=== PATIENT | female | born 1970 | race Caucasian/White ===

== ENCOUNTER 2016-11-15 06:35 | Emergency (ER) | payer MEDICARE ==
[~2016-11-15 06:35] MED LIST: ESCI10TA2 PO; FERR325T PO; HYDR25T PO; MULT1TAB8 PO; NEXI1CAP4 PO; NICO2GUM62 PO; PANT40TA2 PO; SUCR1SS PO
[2016-11-15] MEDS ORDERED: ONDANSETRON 4MG/2ML VIAL (J2405) As Ordered ONE (07:47)
[2016-11-15 08:21] LABS: BASO % 0.5 % (0.0-1.0); EOS # 0.4 K/mm3 (0.0-0.50); EOS % 7.2 % (0.0-3.0); LARGE UNSTAINED CELL # 0.2 K/mm3 (0.0-0.4); LARGE UNSTAINED CELL % 3.6 % (0.0-4.0); LYMPH # 1.5 K/mm3 (1.5-4.5); LYMPH % 26.5 % (24.0-44.0); MEAN CORPUSCULAR HEMOGLOBIN 28.1 pg (27.0-33.0); MEAN CORPUSCULAR HGB CONC 31.7 g/dl (32.0-36.5); MEAN CORPUSCULAR VOLUME 88.6 fl (80.0-96.0); MONO # 0.4 K/mm3 (0.0-0.8); MONO % 7.5 % (0.0-5.0); NEUTROPHILS # 2.7 K/mm3 (1.8-7.7); NEUTROPHILS % 54.7 % (36.0-66.0); PLATELET COUNT, AUTOMATED 230 k/mm3 (150-450); RED CELL DISTRIBUTION WIDTH 13.8 % (11.5-14.5); WHITE BLOOD COUNT 4.9 K/mm3 (4.0-10.0)
[2016-11-15 08:24] LABS: ALBUMIN/GLOBULIN RATIO 0.91 (1.00-1.93); ALKALINE PHOSPHATASE 75 U/L (45-117); ALT/SGPT 16 U/L (12-78); ANION GAP 9 MEQ/L (8-16); AST/SGOT 21 U/L (15-37); BILIRUBIN,DIRECT 0.1 MG/DL (0.0-0.2); BILIRUBIN,TOTAL 0.3 MG/DL (0.2-1.0); BLOOD UREA NITROGEN 17 MG/DL (7-18); CARBON DIOXIDE LEVEL 24 MEQ/L (21-32); CHLORIDE LEVEL 109 MEQ/L (98-107); CREATININE FOR GFR 0.92 MG/DL (0.55-1.02); GLOMERULAR FILTRATION RATE > 60.0 (>58); GLUCOSE, FASTING 78 MG/DL (70-105); POTASSIUM SERUM 4.1 MEQ/L (3.5-5.1); SODIUM LEVEL 142 MEQ/L (136-145); TOTAL PROTEIN 6.3 GM/DL (6.4-8.2)
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
--- NOTE | 2016-11-15 09:46 | EDDOCDS ---
Physician Documentation [facility] Name: Nohemi Barrios Age: 46 yrs Sex: Female : 1970 Arrival Date: 11/15/2016 Time: 06:35 Bed 9 Private MD: Maryana Jacinto Disposition: 11/15 08:42 Critical Care: Critical care not applicable. pc Disposition: 11/15/16 08:43 Discharged to Home/Self Care. Impression: Nausea. - Condition is Stable. - Discharge Instructions: Nausea, Adult. - Prescriptions for ZOFRAN ODT 4 mg - dissolve 1 tablet by ORAL route 4 times per day As needed do not chew, do not swallow whole; 10 tablet. - Medication Reconciliation, Local Pharmacy Hours form. - Follow up: Maryana Jacinto; When: Call to arrange an appointment; Reason: Continuance of care. - Problem is new. - Symptoms have improved. HPI: 08:28 This 46 yrs old Female presents to ER via Ambulance with complaints of pc Nausea, itching x 3 weeks. 08:28 The history is obtained from the patient. She woke up with nausea this morning but has pc not vomited and has no bowel complaints, denies or Resp symptoms, denies fevers or chills. She has felt "itchy all over" for 3 weeks without any rashes. At their worst, the symptoms were mild. In the emergency department, the symptoms are mild. The patient has not experienced similar symptoms in the past. The patient has not recently seen a physician. Historical: - Allergies: PENICILLINS; - Home Meds: 1. Carafate 1 gram Oral tab 1 tab 4 times per day (Last dose: 11/14/2016) 2. Nexium 40 mg Oral cpDR 1 cap once daily (Last dose: 11/14/2016) 3. Wellbutrin Oral Unknown daily ran out before - PMHx: GERD; Depression; - PSHx: Gastric Bypass (February 2013); Cholecystectomy; - The history from nurses notes was reviewed: and I agree with what is documented. - Social history: Smoking status: Electronic cigarettes No barriers to communication noted, The patient speaks fluent Maltese, Speaks appropriately for age. - : The pt / caregiver states he / she is not on anticoagulants. Home medication list is obtained from the patient. - Hospitalizations: : No recent hospitalization is reported. - Exposure Risk Screening:: None identified. - Immunization history:: All immunizations up-to-date. - Family history: Not pertinent. - Social history:: the patient is a non-smoker, the patient does not drink alcohol. 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 pc Exam: 08:28 General Appearance: no acute distress, alert. pc 08:28 EENT: normal eye inspection, ears, nose and throat normal, pharynx normal, mucous membranes moist 08:28 Neck: The exam reveals no acute abnormalities. ROM is normal and painless. No nuchal rigidity is noted.. 08:28 Respiratory: no respiratory distress, normal breath sounds. 08:28 CVS: regular pulse rate, regular rhythm, normal S1 and S2, no murmurs, strong peripheral pulses. 08:28 Abdomen: soft, non-tender, no organomegaly, normal bowel sounds. 08:40 Back: normal inspection. pc 08:40 Skin: skin color is normal, warm, dry. 08:40 Extremities: The extremities have a grossly normal appearance, are non-tender, without acute ROM abnormalities. 08:40 Neuro: oriented x 3, cranial nerves normal as tested, no motor deficits, no sensory deficits. 08:40 Psych: normal mood. Vital Signs: 06:43 BP 115 / 61; Pulse 77; Resp 18; Temp 98.2(TE); Pulse Ox 98% on R/A; Weight 84.37 kg / dolly 186 lbs (R); Height 5 ft. 10 in. (177.80 cm) (R); Pain 0/10; 09:13 BP 128 / 89; Pulse 74; Resp 18; Temp 98.2(O); Pulse Ox 98% on R/A; Pain 0/10; ml6 06:43 Body Mass Index 26.69 (84.37 kg, 177.80 cm) dolly MDM: 07:13 [place] [place] Payment Agreement was scanned into [employer] and attached to record. hs2 07:46 IV Saline Lock ordered. pc 07:46 Ondansetron 4 mg IVP once ordered. pc 07:47 CBC with Diff Ordered. EDMS 07:47 MED Profile Ordered. EDMS 07:47 Liver Profile Ordered. EDMS 07:47 Lipase Ordered. EDMS 07:48 Financial registration complete. hs2 08:28 CBC with Diff Reviewed. pc 08:28 MED Profile Reviewed. pc 08:28 Liver Profile Reviewed. pc 08:28 Lipase Reviewed. pc 08:40 Differential Diagnosis: nausea with benign exam. Plan: meds, labs. pc 08:42 Data reviewed: old medical records, vital signs, nurses notes, lab test results. Test pc interpretation: LAB - all labs as ordered have been reviewed, interpreted and considered in the overall management of the clinical presentation;. The patient has been re-examined and re-evaluated. The patient's symptoms have mildly improved after treatment. Disposition: The historical points, examination findings, and any diagnostic results supporting the provided diagnosis, were discussed with the patient or legal guardian. The need for outpatient follow up with the provider listed on their discharge instructions was discussed. They were encouraged to return to [facility], or the nearest ED, if symptoms worsen/persist, or for any other questions/concerns. 08:58 Consult: Water Commissioner ordered. ml6 Administered Medications: 07:57 Drug: Ondansetron 4 mg [ondansetron HCl 2 mg/mL intravenous solution (2 mL)] Route: ml6 IVP; Site: right antecubital; 09:24 Follow up: Response: Nausea is resolved ml6 Signatures: Dispatcher [employer] EDHI Camilo Price MD MD pc Lowe, Matthew, MILLICENT RICKS ml6 Sophy Desir RN RN ko2 Silvia Starr, Reg Reg hs2 The chart was reviewed and I authenticate all verbal orders and agree with the evaluation and treatment provided.Attachments: 07:13 [facility] Payment Agreement hs2 MTDD
--- NOTE | 2016-11-17 10:46 | EDDOCDS ---
Physician Documentation [facility] Name: Nohemi Barrios Age: 46 yrs Sex: Female : 1970 Arrival Date: 11/15/2016 Time: 06:35 Bed 9 Private MD: Maryana Jacinto Disposition: 11/15 08:42 Critical Care: Critical care not applicable. pc Disposition: 11/15/16 08:43 Discharged to Home/Self Care. Impression: Nausea. - Condition is Stable. - Discharge Instructions: Nausea, Adult. - Prescriptions for ZOFRAN ODT 4 mg - dissolve 1 tablet by ORAL route 4 times per day As needed do not chew, do not swallow whole; 10 tablet. - Medication Reconciliation, Local Pharmacy Hours form. - Follow up: Maryana Jacinto; When: Call to arrange an appointment; Reason: Continuance of care. - Problem is new. - Symptoms have improved. HPI: 08:28 This 46 yrs old Female presents to ER via Ambulance with complaints of pc Nausea, itching x 3 weeks. 08:28 The history is obtained from the patient. She woke up with nausea this morning but has pc not vomited and has no bowel complaints, denies or Resp symptoms, denies fevers or chills. She has felt "itchy all over" for 3 weeks without any rashes. At their worst, the symptoms were mild. In the emergency department, the symptoms are mild. The patient has not experienced similar symptoms in the past. The patient has not recently seen a physician. Historical: - Allergies: PENICILLINS; - Home Meds: 1. Carafate 1 gram Oral tab 1 tab 4 times per day (Last dose: 11/14/2016) 2. Nexium 40 mg Oral cpDR 1 cap once daily (Last dose: 11/14/2016) 3. Wellbutrin Oral Unknown daily ran out before - PMHx: GERD; Depression; - PSHx: Gastric Bypass (February 2013); Cholecystectomy; - The history from nurses notes was reviewed: and I agree with what is documented. - Social history: Smoking status: Electronic cigarettes No barriers to communication noted, The patient speaks fluent Hebrew, Speaks appropriately for age. - : The pt / caregiver states he / she is not on anticoagulants. Home medication list is obtained from the patient. - Hospitalizations: : No recent hospitalization is reported. - Exposure Risk Screening:: None identified. - Immunization history:: All immunizations up-to-date. - Family history: Not pertinent. - Social history:: the patient is a non-smoker, the patient does not drink alcohol. 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 pc Exam: 08:28 General Appearance: no acute distress, alert. pc 08:28 EENT: normal eye inspection, ears, nose and throat normal, pharynx normal, mucous membranes moist 08:28 Neck: The exam reveals no acute abnormalities. ROM is normal and painless. No nuchal rigidity is noted.. 08:28 Respiratory: no respiratory distress, normal breath sounds. 08:28 CVS: regular pulse rate, regular rhythm, normal S1 and S2, no murmurs, strong peripheral pulses. 08:28 Abdomen: soft, non-tender, no organomegaly, normal bowel sounds. 08:40 Back: normal inspection. pc 08:40 Skin: skin color is normal, warm, dry. 08:40 Extremities: The extremities have a grossly normal appearance, are non-tender, without acute ROM abnormalities. 08:40 Neuro: oriented x 3, cranial nerves normal as tested, no motor deficits, no sensory deficits. 08:40 Psych: normal mood. Vital Signs: 06:43 BP 115 / 61; Pulse 77; Resp 18; Temp 98.2(TE); Pulse Ox 98% on R/A; Weight 84.37 kg / dolly 186 lbs (R); Height 5 ft. 10 in. (177.80 cm) (R); Pain 0/10; 09:13 BP 128 / 89; Pulse 74; Resp 18; Temp 98.2(O); Pulse Ox 98% on R/A; Pain 0/10; ml6 06:43 Body Mass Index 26.69 (84.37 kg, 177.80 cm) dolly MDM: 07:13 [place] [place] Payment Agreement was scanned into [employer] and attached to record. hs2 07:46 IV Saline Lock ordered. pc 07:46 Ondansetron 4 mg IVP once ordered. pc 07:47 CBC with Diff Ordered. EDMS 07:47 MED Profile Ordered. EDMS 07:47 Liver Profile Ordered. EDMS 07:47 Lipase Ordered. EDMS 07:48 Financial registration complete. hs2 08:28 CBC with Diff Reviewed. pc 08:28 MED Profile Reviewed. pc 08:28 Liver Profile Reviewed. pc 08:28 Lipase Reviewed. pc 08:40 Differential Diagnosis: nausea with benign exam. Plan: meds, labs. pc 08:42 Data reviewed: old medical records, vital signs, nurses notes, lab test results. Test pc interpretation: LAB - all labs as ordered have been reviewed, interpreted and considered in the overall management of the clinical presentation;. The patient has been re-examined and re-evaluated. The patient's symptoms have mildly improved after treatment. Disposition: The historical points, examination findings, and any diagnostic results supporting the provided diagnosis, were discussed with the patient or legal guardian. The need for outpatient follow up with the provider listed on their discharge instructions was discussed. They were encouraged to return to [facility], or the nearest ED, if symptoms worsen/persist, or for any other questions/concerns. 08:58 Consult: Farm Reporter ordered. ml6 Administered Medications: 07:57 Drug: Ondansetron 4 mg [ondansetron HCl 2 mg/mL intravenous solution (2 mL)] Route: ml6 IVP; Site: right antecubital; 09:24 Follow up: Response: Nausea is resolved ml6 Signatures: Dispatcher [employer] EDWV Camilo Price MD MD pc Lowe, Matthew, RN RN ml6 Sophy Desir RN RN ko2 Silvia Starr, Reg Reg hs2 The chart was reviewed and I authenticate all verbal orders and agree with the evaluation and treatment provided.Attachments: 07:13 [facility] Payment Agreement hs2 Chart Complete MTDD
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
--- NOTE | 2016-11-17 10:46 | EDDOCDS ---
Physician Documentation [facility] Name: Nohemi Barrios Age: 46 yrs Sex: Female : 1970 Arrival Date: 11/15/2016 Time: 06:35 Bed 9 Private MD: Maryana Jacinto Disposition: 11/15 08:42 Critical Care: Critical care not applicable. pc Disposition: 11/15/16 08:43 Discharged to Home/Self Care. Impression: Nausea. - Condition is Stable. - Discharge Instructions: Nausea, Adult. - Prescriptions for ZOFRAN ODT 4 mg - dissolve 1 tablet by ORAL route 4 times per day As needed do not chew, do not swallow whole; 10 tablet. - Medication Reconciliation, Local Pharmacy Hours form. - Follow up: Maryana Jacinto; When: Call to arrange an appointment; Reason: Continuance of care. - Problem is new. - Symptoms have improved. HPI: 08:28 This 46 yrs old Female presents to ER via Ambulance with complaints of pc Nausea, itching x 3 weeks. 08:28 The history is obtained from the patient. She woke up with nausea this morning but has pc not vomited and has no bowel complaints, denies or Resp symptoms, denies fevers or chills. She has felt "itchy all over" for 3 weeks without any rashes. At their worst, the symptoms were mild. In the emergency department, the symptoms are mild. The patient has not experienced similar symptoms in the past. The patient has not recently seen a physician. Historical: - Allergies: PENICILLINS; - Home Meds: 1. Carafate 1 gram Oral tab 1 tab 4 times per day (Last dose: 11/14/2016) 2. Nexium 40 mg Oral cpDR 1 cap once daily (Last dose: 11/14/2016) 3. Wellbutrin Oral Unknown daily ran out before - PMHx: GERD; Depression; - PSHx: Gastric Bypass (February 2013); Cholecystectomy; - The history from nurses notes was reviewed: and I agree with what is documented. - Social history: Smoking status: Electronic cigarettes No barriers to communication noted, The patient speaks fluent Latvian, Speaks appropriately for age. - : The pt / caregiver states he / she is not on anticoagulants. Home medication list is obtained from the patient. - Hospitalizations: : No recent hospitalization is reported. - Exposure Risk Screening:: None identified. - Immunization history:: All immunizations up-to-date. - Family history: Not pertinent. - Social history:: the patient is a non-smoker, the patient does not drink alcohol. MANAGER BUSINESS SYSTEMS: 09:15 LMP N/A - Irregular menses ml6 ROS: 08:28 All systems are negative except as listed. pc Exam: 08:28 General Appearance: no acute distress, alert. pc 08:28 EENT: normal eye inspection, ears, nose and throat normal, pharynx normal, mucous membranes moist 08:28 Neck: The exam reveals no acute abnormalities. ROM is normal and painless. No nuchal rigidity is noted.. 08:28 Respiratory: no respiratory distress, normal breath sounds. 08:28 CVS: regular pulse rate, regular rhythm, normal S1 and S2, no murmurs, strong peripheral pulses. 08:28 Abdomen: soft, non-tender, no organomegaly, normal bowel sounds. 08:40 Back: normal inspection. pc 08:40 Skin: skin color is normal, warm, dry. 08:40 Extremities: The extremities have a grossly normal appearance, are non-tender, without acute ROM abnormalities. 08:40 Neuro: oriented x 3, cranial nerves normal as tested, no motor deficits, no sensory deficits. 08:40 Psych: normal mood. Vital Signs: 06:43 BP 115 / 61; Pulse 77; Resp 18; Temp 98.2(TE); Pulse Ox 98% on R/A; Weight 84.37 kg / dolly 186 lbs (R); Height 5 ft. 10 in. (177.80 cm) (R); Pain 0/10; 09:13 BP 128 / 89; Pulse 74; Resp 18; Temp 98.2(O); Pulse Ox 98% on R/A; Pain 0/10; ml6 06:43 Body Mass Index 26.69 (84.37 kg, 177.80 cm) dolly MDM: 07:13 [facility] Payment Agreement was scanned into [employer] and attached to record. hs2 07:46 IV Saline Lock ordered. pc 07:46 Ondansetron 4 mg IVP once ordered. pc 07:47 CBC with Diff Ordered. EDMS 07:47 MED Profile Ordered. EDMS 07:47 Liver Profile Ordered. EDMS 07:47 Lipase Ordered. EDMS 07:48 Financial registration complete. hs2 08:28 CBC with Diff Reviewed. pc 08:28 MED Profile Reviewed. pc 08:28 Liver Profile Reviewed. pc 08:28 Lipase Reviewed. pc 08:40 Differential Diagnosis: nausea with benign exam. Plan: meds, labs. pc 08:42 Data reviewed: old medical records, vital signs, nurses notes, lab test results. Test pc interpretation: LAB - all labs as ordered have been reviewed, interpreted and considered in the overall management of the clinical presentation;. The patient has been re-examined and re-evaluated. The patient's symptoms have mildly improved after treatment. Disposition: The historical points, examination findings, and any diagnostic results supporting the provided diagnosis, were discussed with the patient or legal guardian. The need for outpatient follow up with the provider listed on their discharge instructions was discussed. They were encouraged to return to [facility], or the nearest ED, if symptoms worsen/persist, or for any other questions/concerns. 08:58 Consult: Online [employer] Fitness Coach ordered. ml6 Administered Medications: 07:57 Drug: Ondansetron 4 mg [ondansetron HCl 2 mg/mL intravenous solution (2 mL)] Route: ml6 IVP; Site: right antecubital; 09:24 Follow up: Response: Nausea is resolved ml6 Signatures: Dispatcher [employer] [facility] Camilo Price MD MD pc Lowe, Matthew, RN RN ml6 Sophy Desir RN RN ko2 Silvia Starr, Reg Reg hs2 The chart was reviewed and I authenticate all verbal orders and agree with the evaluation and treatment provided.Attachments: 07:13 [facility] Payment Agreement hs2 Chart Complete MTDD
== END 2016-11-15 09:45 | disposition home or self-care (01) ==
LOC: M ED 06:35
DX: R11.0 Nausea (principal); K21.9 Gastro-esophageal reflux disease without esophagitis; F32.9 Major depressive disorder, single episode, unspecified; Z98.84 Bariatric surgery status; F17.290 Nicotine dependence, other tobacco product, uncomplicated; Z79.899 Other long term (current) drug therapy; Z88.0 Allergy status to penicillin
CPT/HCPCS: 36415; 80048; 80076; 83690; 85025; 96374; 99284; J2405

== ENCOUNTER → 2017-07-11 | Outpatient (CLI) | payer MEDICARE, MEDICAID ==
[~2017-07-11] MED LIST changes: +FERR1TAB8 PO; -FERR325T PO; +HYDR-3363 PO; -HYDR25T PO
[2017-07-11 12:37] LABS: MEAN CORPUSCULAR HEMOGLOBIN 21.6 pg (27.0-33.0); MEAN CORPUSCULAR HGB CONC 28.9 g/dl (32.0-36.5); MEAN CORPUSCULAR VOLUME 74.7 fl (80.0-96.0); RED CELL DISTRIBUTION WIDTH 17.1 % (11.5-14.5); WHITE BLOOD COUNT 3.5 K/mm3 (4.0-10.0)
[2017-07-11 13:10] LABS: ALBUMIN 2.9 GM/DL (3.2-5.2); ALBUMIN/GLOBULIN RATIO 0.91 (1.00-1.93); ALKALINE PHOSPHATASE 71 U/L (45-117); ALT/SGPT 18 U/L (12-78); ANION GAP 8 MEQ/L (8-16); AST/SGOT 16 U/L (15-37); BILIRUBIN,TOTAL 0.4 MG/DL (0.2-1.0); BLOOD UREA NITROGEN 12 MG/DL (7-18); CALCIUM LEVEL 8.2 MG/DL (8.5-10.1); CARBON DIOXIDE LEVEL 27 MEQ/L (21-32); CHLORIDE LEVEL 106 MEQ/L (98-107); CHOLESTEROL LEVEL 93 MG/DL (<200); CREATININE FOR GFR 0.88 MG/DL (0.55-1.02); FREE T4 1.06 NG/DL (0.76-1.46); GLOMERULAR FILTRATION RATE > 60.0 (>58); GLUCOSE, FASTING 76 MG/DL (70-105); SODIUM LEVEL 141 MEQ/L (136-145); TOTAL PROTEIN 6.1 GM/DL (6.4-8.2); TRIGLYCERIDES LEVEL 67 MG/DL (<150)
== END ==
LOC: M LAB 11:05
PROVIDERS: ATTEND Nurse Practitioner Adult Health
DX: Z51.81 Encounter for therapeutic drug level monitoring (principal); Z79.899 Other long term (current) drug therapy; E83.51 Hypocalcemia; Z98.84 Bariatric surgery status; D53.9 Nutritional anemia, unspecified

== ENCOUNTER → 2018-02-08 | Outpatient (REF) | LOC: M SMT 14:50 | DX: M54.5 Low back pain (principal) ==

== ENCOUNTER 2018-06-26 12:39 | Emergency (ER) | payer MEDICARE, MEDICAID ==
[2018-06-26 14:02] LABS: AMORPHOUS SEDIMENT RFX SMALL (NEGATIVE); KETONE, URINE AUTO RFX NEGATIVE (NEGATIVE); MUCUS, URINE RFX SMALL (NEGATIVE); NITRITE, URINE AUTO RFX NEGATIVE (NEGATIVE); RBC, URINE AUTO RFX 156 /HPF (0-3); SPECIFIC GRAVITY UR AUTO RFX 1.014 (1.002-1.035); SQUAM EPITHELIAL CELL UR AURFX 5 /HPF (0-6)
[2018-06-26 14:20] LABS: LEUKOCYTE ESTERASE UR AUTO RFX 3+ (NEGATIVE); WBC, URINE AUTO RFX TNTC /HPF (0-3)
== END 2018-06-26 14:37 | disposition home or self-care (01) ==
LOC: M ED 12:39
DX: N30.90 Cystitis, unspecified without hematuria (principal); K21.9 Gastro-esophageal reflux disease without esophagitis; Z98.84 Bariatric surgery status; Z79.899 Other long term (current) drug therapy; Z88.0 Allergy status to penicillin; Z91.018 Allergy to other foods; F17.210 Nicotine dependence, cigarettes, uncomplicated
CPT/HCPCS: 81001

== ENCOUNTER 2018-07-07 19:51 | Inpatient (IN) | payer MEDICARE, MEDICAID ==
[2018-07-07 20:10] LABS: BEDSIDE GLUCOSE 98 MG/DL (70-105)
[2018-07-07 20:31] LABS: BASO % 0.2 % (0.0-1.0); HEMATOCRIT 42.3 % (36.0-47.0); HEMOGLOBIN 13.7 g/dl (12.0-15.5); IMMATURE GRANULOCYTE % 0.9 % (0-3.0); LYMPH # 0.3 10^3/uL (1.5-4.5); LYMPH % 1.7 % (24.0-44.0); MEAN CORPUSCULAR HEMOGLOBIN 31.2 pg (27.0-33.0); MEAN CORPUSCULAR HGB CONC 32.4 g/dl (32.0-36.5); MEAN CORPUSCULAR VOLUME 96.4 fl (80.0-96.0); MONO % 5.8 % (0.0-5.0); NEUTROPHILS # 16.4 10^3/uL (1.8-7.7); NEUTROPHILS % 91.4 % (36.0-66.0); PLATELET COUNT, AUTOMATED 252 10^3/uL (150-450); RED BLOOD COUNT 4.39 10^6/uL (4.00-5.40); RED CELL DISTRIBUTION WIDTH 12.6 % (11.5-14.5)
[2018-07-07 20:32] LABS: KETONE, URINE AUTO RFX NEGATIVE (NEGATIVE); LEUKOCYTE ESTERASE UR AUTO RFX NEGATIVE (NEGATIVE); MUCUS, URINE RFX SMALL (NEGATIVE); NITRITE, URINE AUTO RFX NEGATIVE (NEGATIVE); RBC, URINE AUTO RFX 2 /HPF (0-3); SPECIFIC GRAVITY UR AUTO RFX 1.011 (1.002-1.035); SQUAM EPITHELIAL CELL UR AURFX 1 /HPF (0-6); WBC, URINE AUTO RFX 5 /HPF (0-3)
[2018-07-07 20:35] LABS: AMPHETAMINES LEVEL URINE NEGATIVE (NEGATIVE); BARBITURATES URINE NEGATIVE (NEGATIVE); BENZODIAZEPINES URINE NEGATIVE (NEGATIVE); CANNABINOIDS URINE NEGATIVE (NEGATIVE); COCAINE METABOLITE URINE NEGATIVE (NEGATIVE); METHADONE URINE NEGATIVE (NEGATIVE); OPIATES URINE NEGATIVE (NEGATIVE); PHENCYCLIDINE URINE NEGATIVE (NEGATIVE)
[2018-07-07 20:38] LABS: CONTROL LINE HCG INT CTR LINE PRESENT; HCG, SERUM QUALITATIVE NEGATIVE (NEGATIVE)
[2018-07-07 20:46] LABS: ALBUMIN 3.6 GM/DL (3.2-5.2); ALBUMIN/GLOBULIN RATIO 0.92 (1.00-1.93); ALKALINE PHOSPHATASE 83 U/L (45-117); ALT/SGPT 22 U/L (12-78); ANION GAP 16 MEQ/L (8-16); AST/SGOT 31 U/L (7-37); BILIRUBIN,DIRECT 0.2 MG/DL (0.0-0.2); BILIRUBIN,TOTAL 0.4 MG/DL (0.2-1.0); BLOOD UREA NITROGEN 20 MG/DL (7-18); CALCIUM LEVEL 8.4 MG/DL (8.5-10.1); CARBON DIOXIDE LEVEL 15 MEQ/L (21-32); CHLORIDE LEVEL 112 MEQ/L (98-107); CREATININE FOR GFR 1.76 MG/DL (0.55-1.30); GLOMERULAR FILTRATION RATE 33.2 (>58); GLUCOSE, FASTING 77 MG/DL (70-100); MAGNESIUM LEVEL 2.3 MG/DL (1.8-2.4); PHOSPHORUS LEVEL 7.2 MG/DL (2.5-4.9); POTASSIUM SERUM 4.4 MEQ/L (3.5-5.1); SODIUM LEVEL 143 MEQ/L (136-145); TOTAL PROTEIN 7.5 GM/DL (6.4-8.2)
[2018-07-07 20:50] LABS: ETHYL ALCOHOL (ETHANOL) < 0.003 % (0.000-0.010)
[2018-07-07] MEDS: NS 1,000 ML IV ×2 (21:00→23:39)
[2018-07-07 21:34] LABS: ABG BASE EXCESS -6.2 (-2.0-2.0); ABG HCO3 18.2 MEQ/L (22.0-26.0); ABG O2 SATURATION 98.2 % (95.0-99.0); ABG PARTIAL PRESSURE CO2 32.9 mmHg (35.0-45.0); ABG PARTIAL PRESSURE O2 129.9 mmHg (75.0-100.0); ABG STANDARD HCO3 19.4 MEQ/L (22.0-26.0); ABG TOTAL CO2 19.2 MEQ/L (22.0-29.0); ABG pH (ARTERIAL) 7.361 UNITS (7.350-7.450)
[2018-07-07] MEDS: levETIRAcetam INJection 1,000 MG in D5W 100 ML IV (23:34)
[2018-07-08 02:25] LABS: BEDSIDE GLUCOSE 77 MG/DL (70-105)
[2018-07-08] MEDS: ACETAMINOPHEN TAB 650MG DOSE (2X325MG) PO ×2 (05:00→13:49)
[2018-07-08] MEDS: HEPARIN SOD (PORCINE) 5000 UNITS/ML VIAL SC ×3 (05:01→21:20)
[2018-07-08 06:17] LABS: HEMATOCRIT 35.1 % (36.0-47.0); HEMOGLOBIN 12.1 g/dl (12.0-15.5); MEAN CORPUSCULAR HEMOGLOBIN 31.1 pg (27.0-33.0); MEAN CORPUSCULAR HGB CONC 34.5 g/dl (32.0-36.5); MEAN CORPUSCULAR VOLUME 90.2 fl (80.0-96.0); PLATELET COUNT, AUTOMATED 218 10^3/uL (150-450); RED BLOOD COUNT 3.89 10^6/uL (4.00-5.40); RED CELL DISTRIBUTION WIDTH 12.3 % (11.5-14.5); WHITE BLOOD COUNT 9.5 10^3/uL (4.0-10.0)
[2018-07-08 06:30] LABS: ANION GAP 9 MEQ/L (8-16); BLOOD UREA NITROGEN 18 MG/DL (7-18); CALCIUM LEVEL 7.8 MG/DL (8.5-10.1); CARBON DIOXIDE LEVEL 19 MEQ/L (21-32); CHLORIDE LEVEL 114 MEQ/L (98-107); CREATININE FOR GFR 1.14 MG/DL (0.55-1.30); GLOMERULAR FILTRATION RATE 54.9 (>58); GLUCOSE, FASTING 85 MG/DL (70-100); POTASSIUM SERUM 3.7 MEQ/L (3.5-5.1); SODIUM LEVEL 142 MEQ/L (136-145)
[2018-07-08] MEDS: PANTOPRAZOLE 40MG TAB (PROTONIX) PO ×2 (08:01→21:21)
[2018-07-08] MEDS: FERROUS SULFATE 325MG TAB PO (08:01)
[2018-07-08] MEDS: buPROPion **XL** TABLET 150MG (WELLBUTRIN XL) PO (08:01)
[2018-07-08] MEDS: NS 1,000 ML IV ×3 (08:01→21:47)
[2018-07-08] MEDS ORDERED: buPROPion **XL** TABLET 150MG (WELLBUTRIN XL) PO (09:00)
[2018-07-08] MEDS ORDERED: levETIRAcetam INJection 1,000 MG in D5W 100 ML IV (09:00)
[2018-07-08] MEDS ORDERED: PANTOPRAZOLE 40MG TAB (PROTONIX) PO (09:00)
[2018-07-08 10:14] LABS: ALBUMIN 3.1 GM/DL (3.2-5.2); ALBUMIN/GLOBULIN RATIO 0.86 (1.00-1.93); ALKALINE PHOSPHATASE 66 U/L (45-117); ALT/SGPT 28 U/L (12-78); AST/SGOT 70 U/L (7-37); BILIRUBIN,DIRECT 0.2 MG/DL (0.0-0.2); BILIRUBIN,TOTAL 0.5 MG/DL (0.2-1.0); LIPASE 52 U/L (73-393); TOTAL PROTEIN 6.7 GM/DL (6.4-8.2)
[2018-07-08] MEDS: MORPHINE 4 MG/ML 1ML VIAL/SYRINGE (J2270) IV ×2 (10:25→11:09)
[2018-07-08] MEDS: GASTROGRAFIN SOLUTION 30ML PO ×2 (10:31→11:09)
[2018-07-08] MEDS: levETIRAcetam INJection 500 MG in D5W 100 ML IV ×2 (11:10→11:45)
[2018-07-08] MEDS ORDERED: ISOVUE-370 76% 100ML VIAL (Q9967) As Ordered (11:50)
[2018-07-08] MEDS: OXAZEPAM 10 MG CAP PO (13:50)
[2018-07-09] MEDS: HEPARIN SOD (PORCINE) 5000 UNITS/ML VIAL SC ×3 (05:28→21:03)
[2018-07-09] MEDS: NS 1,000 ML IV (08:20)
[2018-07-09] MEDS: PANTOPRAZOLE 40MG TAB (PROTONIX) PO ×2 (08:21→21:03)
[2018-07-09] MEDS: FERROUS SULFATE 325MG TAB PO (08:21)
[2018-07-09] MEDS: buPROPion **XL** TABLET 150MG (WELLBUTRIN XL) PO (08:21)
[2018-07-09 08:22] LABS: HEMATOCRIT 32.6 % (36.0-47.0); MEAN CORPUSCULAR HEMOGLOBIN 31.4 pg (27.0-33.0); MEAN CORPUSCULAR HGB CONC 33.7 g/dl (32.0-36.5); MEAN CORPUSCULAR VOLUME 93.1 fl (80.0-96.0); PLATELET COUNT, AUTOMATED 138 10^3/uL (150-450); RED CELL DISTRIBUTION WIDTH 12.8 % (11.5-14.5); WHITE BLOOD COUNT 4.1 10^3/uL (4.0-10.0)
[2018-07-09 08:42] LABS: ANION GAP 10 MEQ/L (8-16); BLOOD UREA NITROGEN 10 MG/DL (7-18); CALCIUM LEVEL 7.6 MG/DL (8.5-10.1); CARBON DIOXIDE LEVEL 20 MEQ/L (21-32); CHLORIDE LEVEL 113 MEQ/L (98-107); CREATININE FOR GFR 0.83 MG/DL (0.55-1.30); GLOMERULAR FILTRATION RATE > 60.0 (>58); GLUCOSE, FASTING 77 MG/DL (70-100); POTASSIUM SERUM 3.9 MEQ/L (3.5-5.1); SODIUM LEVEL 143 MEQ/L (136-145)
[2018-07-10 01:39] LABS: APPEARANCE, URINE CLOUDY (CLEAR); BACTERIA, URINE AUTO 2+ (NEGATIVE); BILIRUBIN, URINE AUTO NEGATIVE (NEGATIVE); BLOOD, URINE BLOOD 3+ (NEGATIVE); COLOR, URINE RED (YELLOW); GLUCOSE, URINE (UA) AUTO NEGATIVE (NEGATIVE); KETONE, URINE AUTO TRACE mg/dL (NEGATIVE); LEUKOCYTE ESTERASE, URINE AUTO 3+ (NEGATIVE); MUCUS, URINE SMALL (NEGATIVE); NITRITE, URINE AUTO NEGATIVE (NEGATIVE); PROTEIN, URINE AUTO 2+ mg/dL (NEGATIVE); RBC, URINE AUTO TNTC /HPF (0-3); SPECIFIC GRAVITY URINE AUTO 1.012 (1.002-1.035); SQUAMOUS EPITHELIAL CELL UR AU 0 /HPF (0-6); WBC, URINE AUTO TNTC /HPF (0-3)
[2018-07-10 07:00] LABS: HEMATOCRIT 33.5 % (36.0-47.0); MEAN CORPUSCULAR HEMOGLOBIN 30.6 pg (27.0-33.0); MEAN CORPUSCULAR HGB CONC 32.8 g/dl (32.0-36.5); MEAN CORPUSCULAR VOLUME 93.3 fl (80.0-96.0); PLATELET COUNT, AUTOMATED 145 10^3/uL (150-450); RED BLOOD COUNT 3.59 10^6/uL (4.00-5.40); RED CELL DISTRIBUTION WIDTH 12.6 % (11.5-14.5); WHITE BLOOD COUNT 4.3 10^3/uL (4.0-10.0)
[2018-07-10 07:28] LABS: ANION GAP 4 MEQ/L (8-16); BLOOD UREA NITROGEN 9 MG/DL (7-18); CARBON DIOXIDE LEVEL 26 MEQ/L (21-32); CHLORIDE LEVEL 112 MEQ/L (98-107); CREATININE FOR GFR 0.89 MG/DL (0.55-1.30); GLOMERULAR FILTRATION RATE > 60.0 (>58); GLUCOSE, FASTING 84 MG/DL (70-100); POTASSIUM SERUM 3.4 MEQ/L (3.5-5.1); SODIUM LEVEL 142 MEQ/L (136-145)
[2018-07-10] MEDS: FERROUS SULFATE 325MG TAB PO (08:41)
[2018-07-10] MEDS: PANTOPRAZOLE 40MG TAB (PROTONIX) PO ×2 (08:42→20:01)
[2018-07-10] MEDS: buPROPion **XL** TABLET 150MG (WELLBUTRIN XL) PO (08:42)
[2018-07-10] MEDS: FLUoxetine 10 MG CAP PO (14:27)
[2018-07-10] MEDS: LISINOPRIL 10 MG TAB PO (14:55)
[2018-07-11 06:41] LABS: HEMATOCRIT 32.9 % (36.0-47.0); MEAN CORPUSCULAR HEMOGLOBIN 30.6 pg (27.0-33.0); MEAN CORPUSCULAR HGB CONC 33.4 g/dl (32.0-36.5); MEAN CORPUSCULAR VOLUME 91.4 fl (80.0-96.0); PLATELET COUNT, AUTOMATED 177 10^3/uL (150-450); RED CELL DISTRIBUTION WIDTH 12.6 % (11.5-14.5); WHITE BLOOD COUNT 5.1 10^3/uL (4.0-10.0)
[2018-07-11 07:06] LABS: ANION GAP 6 MEQ/L (8-16); BLOOD UREA NITROGEN 9 MG/DL (7-18); CALCIUM LEVEL 8.1 MG/DL (8.5-10.1); CARBON DIOXIDE LEVEL 26 MEQ/L (21-32); CHLORIDE LEVEL 110 MEQ/L (98-107); CREATININE FOR GFR 0.76 MG/DL (0.55-1.30); GLOMERULAR FILTRATION RATE > 60.0 (>58); GLUCOSE, FASTING 79 MG/DL (70-100); POTASSIUM SERUM 3.1 MEQ/L (3.5-5.1); SODIUM LEVEL 142 MEQ/L (136-145)
[2018-07-11] MEDS: POTASSIUM CHLORIDE 10 MEQ SR TABLET PO (09:21)
[2018-07-11] MEDS: KCL 10MEQ/100ML SWI (KRUN) 10 MEQ in APPROPRIATE DILUENT 1 EA IV ×3 (09:21→11:42)
[2018-07-11] MEDS: FERROUS SULFATE 325MG TAB PO (09:22)
[2018-07-11] MEDS: FLUoxetine 10 MG CAP PO (09:22)
[2018-07-11] MEDS: PANTOPRAZOLE 40MG TAB (PROTONIX) PO (09:22)
[2018-07-11] MEDS: LISINOPRIL 10 MG TAB PO (09:23)
[2018-07-11] MEDS: buPROPion **XL** TABLET 150MG (WELLBUTRIN XL) PO (09:26)
== END 2018-07-11 12:40 | disposition home or self-care (01) | DRG 101 ==
LOC: M MSPAV 07-08 01:30 → M ED 19:51 → M ED INP 23:24
DX: R56.9 Unspecified convulsions (principal); N17.9 Acute kidney failure, unspecified; K21.9 Gastro-esophageal reflux disease without esophagitis; F33.42 Major depressive disorder, recurrent, in full remission; M54.5 Low back pain; K25.9 Gastric ulcer, unspecified as acute or chronic, without hemorrhage or perforation; F17.210 Nicotine dependence, cigarettes, uncomplicated; D50.9 Iron deficiency anemia, unspecified; R10.9 Unspecified abdominal pain; Z98.84 Bariatric surgery status; Z90.49 Acquired absence of other specified parts of digestive tract; Z79.899 Other long term (current) drug therapy; T43.205A Adverse effect of unspecified antidepressants, initial encounter; Z91.5 Personal history of self-harm

== ENCOUNTER → 2019-03-22 | Outpatient (REF) | payer MEDICARE, MEDICAID ==
[~2019-03-22] MED LIST changes: +FERR325T3 PO; +K-TA1TAB PO; +LISI-538 PO; +MACR100C43 PO; -PANT40TA2 PO; +PANT40TA3 PO; +PATIENT COMMENTS; +PROZ10CA7 PO; +PYRI1TAB5 PO; +WELLTAB40 PO
[2019-03-22 13:37] LABS: ALBUMIN 3.4 GM/DL (3.2-5.2); ALT/SGPT 22 U/L (12-78); BILIRUBIN,TOTAL 0.5 MG/DL (0.2-1.0); BLOOD UREA NITROGEN 14 MG/DL (7-18); CALCIUM LEVEL 8.5 MG/DL (8.5-10.1); CARBON DIOXIDE LEVEL 26 MEQ/L (21-32); CHLORIDE LEVEL 106 MEQ/L (98-107); CHOLESTEROL LEVEL 145 MG/DL (<200); CHOLESTEROL RISK RATIO 2.636 (<5); GLOMERULAR FILTRATION RATE > 60.0 (>58); GLUCOSE, FASTING 88 MG/DL (70-100); HDL CHOLESTEROL 55 MG/DL (>40); LDL CHOLESTEROL 74 MG/DL (<100); NON-HDL-C 90 MG/DL; SODIUM LEVEL 139 MEQ/L (136-145); TOTAL 25(OH) VITAMIN D 15.1 NG/ML (30.0-100.0); TOTAL PROTEIN 6.8 GM/DL (6.4-8.2); TRIGLYCERIDES LEVEL 80 MG/DL (<150)
[2019-03-22 13:55] LABS: HEMOGLOBIN A1c 4.8 %
[2019-03-22 16:37] LABS: BASO % 0.6 % (0.0-1.0); EOS # 0.3 10^3/uL (0.0-0.50); HEMATOCRIT 38.1 % (36.0-47.0); HEMOGLOBIN 12.6 g/dl (12.0-15.5); LYMPH # 1.8 10^3/uL (1.5-4.5); LYMPH % 27.9 % (24.0-44.0); MEAN CORPUSCULAR HEMOGLOBIN 29.9 pg (27.0-33.0); MEAN CORPUSCULAR HGB CONC 33.1 g/dl (32.0-36.5); MEAN CORPUSCULAR VOLUME 90.3 fl (80.0-96.0); MONO # 0.5 10^3/uL (0.0-0.8); MONO % 8.6 % (0.0-5.0); NEUTROPHILS # 3.7 10^3/uL (1.8-7.7); NEUTROPHILS % 58.6 % (36.0-66.0); PLATELET COUNT, AUTOMATED 280 10^3/uL (150-450); RED BLOOD COUNT 4.22 10^6/uL (4.00-5.40); WHITE BLOOD COUNT 6.3 10^3/uL (4.0-10.0)
[2019-03-27 00:07] LABS: Lyme Disease IgG/IgM Antibodie <0.91 ISR (0.00-0.90); Lyme Disease IgM Ab Quantitati <0.80 index (0.00-0.79)
== END ==
LOC: M LAB REF 12:36
PROVIDERS: ATTEND Family Medicine
DX: Z00.01 Encounter for general adult medical examination with abnormal findings (principal); E66.8 Other obesity; M19.90 Unspecified osteoarthritis, unspecified site; R53.81 Other malaise; Z79.899 Other long term (current) drug therapy

== ENCOUNTER 2019-08-24 01:27 | Emergency (ER) | payer MEDICARE, MEDICAID ==
[~2019-08-24] VITALS: Ht 172.7 cm; Wt 126.3 kg
[~2019-08-24 01:27] MED LIST changes: +NICO2GUM52 PO; -NICO2GUM62 PO
[2019-08-24 01:53] LABS: BASO % 0.9 % (0.0-1.0); EOS # 0.2 10^3/uL (0.0-0.5); EOS % 5.1 % (0.0-3.0); HEMATOCRIT 37.7 % (36.0-47.0); LYMPH # 1.2 10^3/uL (1.5-5.0); LYMPH % 26.7 % (24.0-44.0); MEAN CORPUSCULAR HEMOGLOBIN 29.2 pg (27.0-33.0); MEAN CORPUSCULAR HGB CONC 31.8 g/dl (32.0-36.5); MEAN CORPUSCULAR VOLUME 91.7 fl (80.0-96.0); MONO # 0.5 10^3/uL (0.0-0.8); MONO % 10.8 % (0.0-5.0); NEUTROPHILS # 2.6 10^3/uL (1.5-8.5); NEUTROPHILS % 56.5 % (36.0-66.0); PLATELET COUNT, AUTOMATED 227 10^3/uL (150-450); RED BLOOD COUNT 4.11 10^6/uL (4.00-5.40); WHITE BLOOD COUNT 4.5 10^3/uL (4.0-10.0)
[2019-08-24 02:22] LABS: AMPHETAMINES LEVEL URINE NEGATIVE (NEGATIVE); BARBITURATES URINE NEGATIVE (NEGATIVE); BENZODIAZEPINES URINE NEGATIVE (NEGATIVE); CANNABINOIDS URINE NEGATIVE (NEGATIVE); COCAINE METABOLITE URINE NEGATIVE (NEGATIVE); METHADONE URINE NEGATIVE (NEGATIVE); OPIATES URINE NEGATIVE (NEGATIVE); PHENCYCLIDINE URINE NEGATIVE (NEGATIVE)
[2019-08-24 02:25] LABS: ACETAMINOPHEN LEVEL < 2.0 UG/ML (10.0-30.0); ALBUMIN 3.2 GM/DL (3.2-5.2); ALT/SGPT 13 U/L (12-78); BILIRUBIN,DIRECT < 0.1 MG/DL (0.0-0.2); BILIRUBIN,TOTAL 0.2 MG/DL (0.2-1.0); BLOOD UREA NITROGEN 7 MG/DL (7-18); CARBON DIOXIDE LEVEL 26 MEQ/L (21-32); CHLORIDE LEVEL 109 MEQ/L (98-107); CK-MB VALUE MASS < 1.0 NG/ML (<3.6); CPK CREATINE PHOSPHOKINASE 88 U/L (26-192); CREATININE FOR GFR 0.93 MG/DL (0.55-1.30); ETHYL ALCOHOL (ETHANOL) 0.169 % (0.000-0.010); FREE THYROXINE INDEX 3.6 % (1.3-4.8); GLOMERULAR FILTRATION RATE > 60.0 (>58); GLUCOSE, FASTING 67 MG/DL (70-100); MB/CK RELATIVE INDEX 1.14 (< OR =4); SODIUM LEVEL 141 MEQ/L (136-145); T UPTAKE 34 % (30-39); THYROXINE (T4) 10.6 UG/DL (4.5-12.0); TOTAL PROTEIN 6.8 GM/DL (6.4-8.2); TROPONIN I < 0.02 NG/ML (< 0.10)
[2019-08-24] MEDS ORDERED: ESCI10TA2 (02:33)
[2019-08-24] MEDS ORDERED: ESCI20TA (02:33)
[2019-08-24] MEDS ORDERED: OMEP-221 (02:33)
[2019-08-24] MEDS ORDERED: ZOLP10TA2 PO (02:33)
[2019-08-24] MEDS ORDERED: BUPR150T5 (02:33)
[2019-08-24] MEDS ORDERED: [UNRECOGNIZED DRUG - OTHER] (02:33)
[2019-08-24] MEDS ORDERED: DEXTROSE 50% 50 ML SYRINGE IV STA (02:34)
[2019-08-24] MEDS ORDERED: D5W/0.45% SODIUM CHLORIDE 1,000 ML IV SCH (02:45)
--- NOTE | 2019-08-24 02:54 | REPVR ---
PROCEDURE INFORMATION: Exam: CT Head Without Contrast Exam date and time: 08/24/2019 2:07 AM Clinical history: 48 years old, female; Altered mental status/memory loss; Confusion or disorientation; Additional info: AMS TECHNIQUE: Imaging protocol: Computed tomography of the head without contrast. Radiation optimization: All CT scans at this facility use at least one of these dose optimization techniques: automated exposure control; mA and/or kV adjustment per patient size (includes targeted exams where dose is matched to clinical indication); or iterative reconstruction. COMPARISON: CT Head without contrast 07/07/2018 8:42 PM FINDINGS: Brain: Normal. No hemorrhage. Unremarkable white matter. No mass effect. Ventricles: Normal. No ventriculomegaly. Bones/joints: Unremarkable. No acute fracture. Sinuses: Visualized sinuses are unremarkable. No fluid levels. Mastoid air cells: Visualized mastoid air cells are well aerated. Soft tissues: Unremarkable. IMPRESSION: No acute intracranial abnormality. Electronically signed by: Parrish Morris On 08/24/2019 02:53:50 AM
[2019-08-24] MEDS ORDERED: OMEPRAZOLE 20 MG CAP PO ONE (08:45)
[2019-08-24] MEDS ORDERED: ACETAMINOPHEN 325 MG TAB PO ONE (09:15)
--- NOTE | 2019-08-24 09:42 | ECGEPIP ---
[facility] - ED Test Date: 2019-08-24 Pat Name: JARRETT MARTINEZ Department: Room: - Gender: Female Operations Developer: AMANDA : 1970 Requested By: JANICE SHANKS Order Number: [id number] Reading MD: Marley Friedman Measurements Intervals [place] Rate: 61 P: 52 MN: 206 QRS: 72 QRSD: 101 T: 72 QT: 462 QTc: 469 Interpretive Statements SINUS RHYTHM NONSPECIFIC ST T WAVE CHANGES 09/13/[address] T WAVE CHANGES Electronically Signed on 08-24-2019 9:42:16 EDT by Marley Friedman
[2019-08-24 10:56] VITALS: BP 106/56
== END 2019-08-24 10:53 | disposition home or self-care (01) ==
LOC: M ED 01:27
DX: F10.229 Alcohol dependence with intoxication, unspecified (principal); F13.10 Sedative, hypnotic or anxiolytic abuse, uncomplicated; Y90.0 Blood alcohol level of less than 20 mg/100 ml; Z79.899 Other long term (current) drug therapy
CPT/HCPCS: 70450; 80048; 80076; 80307; 81001; 82140; 82550; 82553; 83605; 84436; 84443; 84479; 84484; 85025; 93005; 93041; 94760; 96374; 99285; G0480

== ENCOUNTER 2020-04-26 14:04 | Inpatient (IN) | payer MEDICARE, MEDICAID ==
[~2020-04-26] VITALS: Ht 177.8 cm; Wt 120.7 kg
[2020-04-26] VITALS (10 sets, daily range): BP systolic 133–165; BP diastolic 80–96
[~2020-04-26 14:04] MED LIST changes: +BUPR150T5 PO; +ESCI10TA2; +ESCI20TA PO; +NICO-13 PO; -NICO2GUM52 PO; +OMEP-221 PO; +PANT40TA29 PO; -PANT40TA3 PO; +ZOLP10TA2 PO; +[UNRECOGNIZED DRUG - OTHER]
[2020-04-26] MEDS: NS 1,000 ML IV SCH (14:45)
[2020-04-26] MEDS ORDERED: PANTOPRAZOLE 40MG VIAL (C9113 PER 1) IV ONE (14:45)
[2020-04-26] MEDS ORDERED: PANTOPRAZOLE SODIUM 40 MG in D5W 50 ML IV SCH (14:45)
[2020-04-26 14:52] LABS: BASO % 0.4 % (0.0-1.0); EOS # 0.1 10^3/uL (0.0-0.5); EOS % 1.9 % (0.0-3.0); HEMATOCRIT 28.7 % (36.0-47.0); LYMPH # 1.3 10^3/uL (1.5-5.0); LYMPH % 23.5 % (24.0-44.0); MEAN CORPUSCULAR HEMOGLOBIN 27.5 pg (27.0-33.0); MEAN CORPUSCULAR HGB CONC 31.4 g/dl (32.0-36.5); MEAN CORPUSCULAR VOLUME 87.8 fl (80.0-96.0); MONO # 0.4 10^3/uL (0.0-0.8); MONO % 7.7 % (0.0-5.0); NEUTROPHILS # 3.5 10^3/uL (1.5-8.5); NEUTROPHILS % 66.1 % (36.0-66.0); PLATELET COUNT, AUTOMATED 245 10^3/uL (150-450); RED BLOOD COUNT 3.27 10^6/uL (4.00-5.40); WHITE BLOOD COUNT 5.3 10^3/uL (4.0-10.0)
[2020-04-26 15:09] LABS: INR 1.14; PARTIAL THROMBOPLASTIN TIME 31.4 SECONDS (25.0-38.4); PROTHROMBIN TIME 14.3 SECONDS (11.8-14.0)
[2020-04-26 15:43] LABS: ALBUMIN 2.6 GM/DL (3.2-5.2); ALT/SGPT 12 U/L (12-78); BILIRUBIN,DIRECT 0.2 MG/DL (0.0-0.2); BILIRUBIN,TOTAL 0.5 MG/DL (0.2-1.0); LIPASE 44 U/L (73-393); TOTAL PROTEIN 5.8 GM/DL (6.4-8.2)
[2020-04-26 15:44] LABS: ETHYL ALCOHOL (ETHANOL) < 0.003 % (0.000-0.010)
[2020-04-26] MEDS ORDERED: ISOVUE-370 76% 100ML VIAL As Ordered ONE (16:07)
[2020-04-26] MEDS ORDERED: TRIA1CR80 TOP (16:27)
--- NOTE | 2020-04-26 16:52 | REP ---
Clinical: Abdominal pain. Rule out perforation. Technique: Axial contrast enhanced images from the lung bases to the pubic symphysis using 100 ml Isovue 370 intravenous contrast material. Comparison: 07/08/2018. Findings: Lung bases are clear. Visualized heart and pericardium normal. Liver, spleen, pancreas, bilateral adrenal glands and kidneys are essentially normal. 2 cm right renal hypodensity most compatible with cyst and similar to prior examination. Evidence for prior gastric bypass surgery and cholecystectomy. The enteric system is without obstruction or obvious acute inflammatory process. No ascites. No free air to suggest perforation. Pelvis demonstrates normal bladder and age-appropriate uterus/adnexa. No pelvic fluid. No intraperitoneal or retroperitoneal adenopathy. Abdominal aorta and vasculature appear grossly normal and without aneurysm or dissection. Musculoskeletal structures are intact. Impression: 1. No evidence for bowel obstruction or perforation. 2. No acute abdominopelvic pathology appreciated. 3. Stable right renal cyst. 4. Evidence for prior gastric bypass surgery and cholecystectomy. Electronically Signed by Jitendra Self MD 04/26/2020 04:43 P
[2020-04-26] MEDS ORDERED: ACETAMINOPHEN TAB 650MG DOSE (2X325MG) PO PRN (17:00)
--- NOTE | 2020-04-26 17:05 | HPEPDOC ---
[facility] Medical History & Physical Date of Admission Apr 26, 2020 Date of Service: Apr 26, 2020 History and Physical CHIEF COMPLAINT: Melena HISTORY OF PRESENT ILLNESS: Patient is 49 year old female with PMH gastric bypass in 2013, PUD s/p surgery, Depression, GERD and chronic OA presents to the hospital with complaints of abdominal discomfort and melena. She reports having abdominal pain monthly during her menstrual cycles but this time seems worse and out of cycle. She reports intermittent pain for the past 3 days that was initially nagging/dull in nature that progress to sharp over the periumbilical region. Pain worst at 7/10 worsens with food, sometimes associated with nausea. She reports improvement in her symptoms and currently only at about 3/10. She has been taking Naproxen 500 mg BID for her arthritis pain over the past few days and subsequently noted dark/tarry stool since yesterday. Otherwise denies any other complaints including any chest pain, SOB, fever, chills. PAST MEDICAL HISTORY: Refer to [facility] PAST SURGICAL HISTORY: Cholecystectomy Gastric bypass 2013 abdominal surgery due to PUD SOCIAL HISTORY: Smokes 1ppd. Social alcohol use. Denies any drug use. FAMILY HISTORY: Father- CHF unknown type Mother- kidney disease and DM ALLERGIES: Please see below. REVIEW OF SYSTEMS: 10 point review of system negative except as stated in HPI HOME MEDICATIONS: Please see below. PHYSICAL EXAMINATION: General: No acute distress, Alert, pale (reportedly her baseline) Eyes: Normal sclera, EOMI HENT: Atraumatic Cardiovascular: Regular rate, regular rhythm Pulmonary: Clear to auscultation b/l, no wheezing GI: Soft, minimal tenderness over epigastric region, nondistended Skin: Warm and dry Neuro: CN grossly intact. No focal deficits. Strengths equal b/l. Psych: oriented x 3 LABORATORY DATA: See below. IMAGING: CT Abdomen/pelvis- Impression: 1. No evidence for bowel obstruction or perforation. 2. No acute abdominopelvic pathology appreciated. 3. Stable right renal cyst. 4. Evidence for prior gastric bypass surgery and cholecystectomy. MICROBIOLOGY: Please see below. ASSESSMENT AND PLAN: 1. GIB 2/2 NSAID use - Has been taking Naproxen in setting of chronic OA pain. History of bleeding PUD. - Normally on PPI but has not been taking it for awhile. - Hb 9.0 on admission, noted to be at 12 in 2019. - 2 units pRBC ordered from ER, appreciated it. Will monitor H/H q6H after that. No evidence of bleeding so far since arrival. - Symptoms minimal at this time, no significant tenderness noted. - c/w PPI 40mg IV q8H along with carafate. - Discussed with gen surg through the phone, will consult if does not improve and need scope or further assistance. - Likely can be followed up outpatient with evidence of cessation of bleeds and stabelization of H/H. - Trend H/H q6 today. f/u CBC post transfusion. Low dose morphine for pain control. AVOID NSAIDS. 2. Depression - resume home meds once PO intake is tolerable/resumed. 3. OA - Tylenol if patient is taking PO, otherwise low dose morphine. 4. GERD - IV PPI initiated. DVT ppx: TEDs Code status: Full code Dispo: Home once bleeding is controlled. Does not seem to need PT. Vital Signs Vital Signs Date Time Temp Pulse Resp B/P (MAP) Pulse Ox O2 Delivery O2 Flow Rate FiO2 04/26/20 16:52 98.2 62 18 148/83 100 Room Air Laboratory Data Labs 24H Laboratory Tests 2 04/26/20 14:33: Immature Granulocyte % (Auto) 0.4, Neutrophils (%) (Auto) 66.1H, Lymphocytes (%) (Auto) 23.5L, Monocytes (%) (Auto) 7.7H, Eosinophils (%) (Auto) 1.9, Basophils (%) (Auto) 0.4, Neutrophils # (Auto) 3.5, Lymphocytes # (Auto) 1.3L, Monocytes # (Auto) 0.4, Eosinophils # (Auto) 0.1, Basophils # (Auto) 0.0, Nucleated Red Blood Cells % (auto) 0.0, Prothrombin Time 14.3H, Prothromb Time International Ratio 1.14, Activated Partial Thromboplast Time 31.4, Total Bilirubin 0.5, Direct Bilirubin 0.2, Aspartate Amino Transf (AST/SGOT) 19, Alanine Aminotransferase (ALT/SGPT) 12, Alkaline Phosphatase 79, Total Protein 5.8L, Albumin 2.6L, Albumin/Globulin Ratio 0.8L, Lipase 44L, Ethyl Alcohol Level < 0.003 04/26/20 14:37: POC Glucose (Misc Panel) 98, POC Sodium (Misc Panel) 140, POC Potassium (Misc Panel) 4.2, POC Chloride (Misc Panel) 105, POC Total CO2 (Misc Panel) 21.0L, POC Blood Urea Nitrogen (Misc Panel 32H, POC Ionized Calcium (Misc Panel) 4.4L, POC Creatinine (Misc Panel) 1.0, POC Hematocrit (Misc Panel) 28.0L CBC/BMP Laboratory Tests 04/26/20 14:33 Home Medications Scheduled Omeprazole (Omeprazole) 40 Mg Capsule.dr, 40 MG PO DAILY Triamcinolone Acet (Triamcinolone Acetonide 0.1% Crm) 80 Gm Cream..g., 1 APPLIC TOP DAILY APPLY TO FEET Scheduled PRN Zolpidem Tartrate (Zolpidem Tartrate) 10 Mg Tablet, 10 MG PO QHS PRN for SLEEP Allergies Coded Allergies: banana (Unverified Allergy, Severe, 08/24/19) Penicillins (Verified Allergy, Intermediate, HIVES, 08/24/19) BEANS (Verified Allergy, Unknown, CANNED BAKED BEANS, 05/08/06) [place] (Verified Allergy, Unknown, 05/08/06) pineapple (Verified Allergy, Unknown, 08/24/19) bupropion (Verified Adverse Reaction, Unknown, SEIZURES, 08/24/19) A-FIB/CHADSVASC A-FIB History Current/History of A-Fib/PAF?: No MARIANELA BELTRAN MD Apr 26, 2020 17:05
[2020-04-26] MEDS: SUCRALFATE SUSP 1GM/10ML UD PO SCH (18:41)
[2020-04-26] MEDS: PANTOPRAZOLE 40MG VIAL (C9113 PER 1) IV SCH (22:15)
[2020-04-26] MEDS ORDERED: HYDROCORTISONE 1% CREAM 30 GM TOP ONE (23:15)
[2020-04-27] VITALS (29 sets, daily range): BP systolic 99–146; BP diastolic 56–89
[2020-04-27] MEDS: NS 1,000 ML IV SCH ×4 (01:02→15:35)
[2020-04-27] MEDS ORDERED: NS 500 ML IV ONE (03:15)
[2020-04-27 03:32] LABS: HEMATOCRIT 21.5 % (36.0-47.0); MEAN CORPUSCULAR HEMOGLOBIN 27.9 pg (27.0-33.0); MEAN CORPUSCULAR HGB CONC 32.1 g/dl (32.0-36.5); PLATELET COUNT, AUTOMATED 190 10^3/uL (150-450); RED BLOOD COUNT 2.47 10^6/uL (4.00-5.40); WHITE BLOOD COUNT 6.7 10^3/uL (4.0-10.0)
[2020-04-27 03:34] LABS: HEMOGLOBIN 6.9 g/dl (12.0-15.5)
[2020-04-27 03:53] LABS: BLOOD UREA NITROGEN 29 MG/DL (7-18); CALCIUM LEVEL 6.6 MG/DL (8.5-10.1); CARBON DIOXIDE LEVEL 23 MEQ/L (21-32); CHLORIDE LEVEL 117 MEQ/L (98-107); CREATININE FOR GFR 0.83 MG/DL (0.55-1.30); GLOMERULAR FILTRATION RATE > 60.0 (>58); GLUCOSE, FASTING 105 MG/DL (70-100); POTASSIUM SERUM 3.5 MEQ/L (3.5-5.1); SODIUM LEVEL 145 MEQ/L (136-145)
[2020-04-27] MEDS: MORPHINE 2 MG/ML 1ML VIAL (J2270) IV PRN ×2 (04:44→20:22)
[2020-04-27] MEDS: OCTREOTIDE ACETATE 1,200 MCG in NS 238.8 ML IV SCH (05:14)
[2020-04-27] MEDS ORDERED: MORPHINE 2 MG/ML 1ML VIAL (J2270) IV ONE (05:15)
[2020-04-27] MEDS: PANTOPRAZOLE 40MG VIAL (C9113 PER 1) IV SCH ×3 (05:38→21:18)
[2020-04-27] MEDS ORDERED: ONDANSETRON 4MG/2ML VIAL IV PRN ×2 (05:45→07:15)
[2020-04-27] MEDS ORDERED: EPINEPHrine 1MG/ML INJ 30ML MD-VIAL As Ordered ONE (05:47)
[2020-04-27] MEDS ORDERED: SUCCINYLCHOLINE 100 MG/5 ML SYRINGE (J0330) As Ordered ONE (05:49)
[2020-04-27] MEDS ORDERED: ROCURONIUM BROMIDE 50 MG/5 ML VIAL As Ordered ONE (05:49)
[2020-04-27] MEDS ORDERED: LIDOCAINE 2% 100MG/5ML SDV (FOR ANES.) As Ordered ONE (05:49)
[2020-04-27] MEDS ORDERED: propofoL 200 MG/20 ML VIAL As Ordered ONE (05:49)
[2020-04-27] MEDS ORDERED: fentaNYL 100 MCG/2 ML INJECTION (J3010) As Ordered ONE (05:50)
[2020-04-27] MEDS ORDERED: METOCLOPRAMIDE INJ 10MG/2ML VIAL (J2765 PER 1) As Ordered ONE (05:50)
[2020-04-27] MEDS ORDERED: dexameTHASONE 4 MG/ML 1ML VIAL (J1100 PER 1MG) As Ordered ONE (05:50)
[2020-04-27] MEDS ORDERED: ONDANSETRON 4MG/2ML VIAL As Ordered ONE (05:50)
[2020-04-27] MEDS ORDERED: MIDAZOLAM INJ 2MG/2ML VIAL (J2250 PER 1MG) As Ordered ONE (05:50)
[2020-04-27] MEDS ORDERED: PHENYLephrine HCL 500 MCG/5 ML (100MCG/ML) SYRINGE (J2370) As Ordered ONE (06:23)
[2020-04-27] MEDS ORDERED: oxyCODONE 5MG TAB PO PRN (07:15)
[2020-04-27] MEDS ORDERED: fentaNYL 100 MCG/2 ML INJECTION (J3010) IV PRN (07:15)
[2020-04-27] MEDS: SUCRALFATE SUSP 1GM/10ML UD PO SCH (08:29)
[2020-04-27 08:48] LABS: HEMATOCRIT 32.7 % (36.0-47.0); HEMOGLOBIN 10.4 g/dl (12.0-15.5)
[2020-04-27] MEDS: HYDROCORTISONE 1% CREAM 30 GM TOP SCH ×2 (10:30→21:00)
[2020-04-27 12:29] LABS: HEMATOCRIT 33.4 % (36.0-47.0); HEMOGLOBIN 10.2 g/dl (12.0-15.5)
--- NOTE | 2020-04-27 12:55 | CR ---
DATE OF CONSULTATION: 04/27/2020 REASON FOR CONSULTATION: Gastrointestinal (GI) bleed. BRIEF HISTORY OF PRESENT ILLNESS: The patient is a 49-year-old obese female who has had gastric bypass about in 2014, had a postoperative complication of a perforation with abscess developing. They treated this with percutaneous drainage and has had a symptomatic anemia and in admission a few years ago presents back with a significant amount of nonsteroidal [id number] pill use for some heavy menstrual cycles, and for the last 3 days she has been using nonsteroidals/naprosyn twice a day and noticed some dark tarry stool yesterday. Comes into the emergency room with decreased hematocrit and probable GI bleed overnight. The patient was having distress and pain mostly in the epigastric area without tenderness. CAT scan showed no perforation; and on admission and during the night, she developed a significant large rectal stool and bright red blood, as well as steve colored. She had another episode and had some hypotension associated with this. Followup hematocrit shows a significant decrease in her hematocrit. PAST MEDICAL HISTORY: Is significant for history of gastric bypass surgery, questionable peptic ulcer surgery, history of depression, gastroesophageal reflux disease (GERD), chronic osteoarthritis, cholecystectomy, history of smoking. PHYSICAL EXAMINATION: Reveals an obese white female who looks stated age. HEENT is unremarkable. Neck: Supple without adenopathy. Lungs are clear to auscultation. Heart is regular. Abdomen is soft. Mild tenderness over the epigastric region but no guarding, no rebound, no peritoneal signs. No diffuse abdominal tenderness or pain. No signs of peritonitis. IMPRESSION AND PLAN: The patient has a gastrointestinal bleed, most likely secondary to nonsteroidals, and I anticipate it is probably at the gastrojejunostomy site. Given the significant bleeding occurring, will take her emergently for an endoscopy. We have discussed endoscopy with her at length, the risks as well as benefits associated with endoscopy, specifically having a higher risk of bleeding, perforation are present in the acute situation. She understands and would like to proceed with this as soon as possible. I agree with starting the Carafate proton pump inhibitors, but I also recommend starting an octreotide drip.
[2020-04-27 18:45] LABS: HEMATOCRIT 28.3 % (36.0-47.0); HEMOGLOBIN 9.4 g/dl (12.0-15.5)
[2020-04-27] MEDS ORDERED: HYDROcodone/APAP LIQUID 7.5-325MG 15ML UDC (LORTAB ELIXIR) PO PRN (20:45)
[2020-04-28] VITALS: BP 132/72
[2020-04-28 00:44] LABS: HEMATOCRIT 28.8 % (36.0-47.0); HEMOGLOBIN 9.4 g/dl (12.0-15.5)
[2020-04-28] MEDS: HYDROCORTISONE 1% CREAM 30 GM TOP SCH ×3 (02:30→21:44)
[2020-04-28] MEDS: OCTREOTIDE ACETATE 1,200 MCG in NS 238.8 ML IV SCH (03:46)
[2020-04-28 04:00] VITALS: BP 148/78
[2020-04-28 05:04] LABS: HEMATOCRIT 27.2 % (36.0-47.0); HEMOGLOBIN 8.7 g/dl (12.0-15.5); MEAN CORPUSCULAR HEMOGLOBIN 29.1 pg (27.0-33.0); PLATELET COUNT, AUTOMATED 162 10^3/uL (150-450); RED BLOOD COUNT 2.99 10^6/uL (4.00-5.40); WHITE BLOOD COUNT 9.3 10^3/uL (4.0-10.0)
[2020-04-28 05:36] LABS: BLOOD UREA NITROGEN 20 MG/DL (7-18); CALCIUM LEVEL 7.5 MG/DL (8.5-10.1); CARBON DIOXIDE LEVEL 21 MEQ/L (21-32); CHLORIDE LEVEL 111 MEQ/L (98-107); CREATININE FOR GFR 0.71 MG/DL (0.55-1.30); GLOMERULAR FILTRATION RATE > 60.0 (>58); GLUCOSE, FASTING 112 MG/DL (70-100); POTASSIUM SERUM 4.6 MEQ/L (3.5-5.1); SODIUM LEVEL 137 MEQ/L (136-145)
[2020-04-28] MEDS: PANTOPRAZOLE 40MG VIAL (C9113 PER 1) IV SCH ×3 (06:11→21:44)
[2020-04-28] MEDS: NS 1,000 ML IV SCH ×2 (07:17)
--- NOTE | 2020-04-28 08:03 | REP ---
Clinical: Abdominal pain. Technique: Upright view of the chest with supine and upright views of the abdomen and pelvis. Findings: Frontal upright view of the chest demonstrates no acute cardiopulmonary process or free air below the diaphragm to suspect pneumoperitoneum. Supine and upright views of the abdomen and pelvis demonstrate nonspecific bowel gas pattern without obstruction or perforation. No organomegaly. No abnormal calcifications. Skeletal structures normal for age. Surgical clips suggest cholecystectomy and possible dropped clips in the right lower quadrant versus appendectomy. Impression: Nonspecific bowel gas pattern. Electronically Signed by Jitendra Self MD 04/28/2020 07:54 A
[2020-04-28 08:13] VITALS: BP 147/95
[2020-04-28] MEDS: SUCRALFATE SUSP 1GM/10ML UD PO SCH (08:50)
--- NOTE | 2020-04-28 09:01 | IPN ---
DATE: 04/27/2020 The patient was admitted 04/26/2020 with complaints of melena urgently brought to the operating room for esophagogastroduodenoscopy (EGD) due to significant blood loss with hemoglobin decreasing down to 6. EGD showed ulcer with no active oozing, per Dr. Chery, currently on octreotide and Protonix. The patient currently denies chest pain, pressure or tightness, shortness of breath lightheadedness or dizziness. She has just returned from her EGD. Systolic pressure is 114/66 saturating 100% on room air with no acute ischemic symptoms. Temperature 97.5, pulse 64, respiratory rate 16, blood pressure 114/66, 100% on 2 liters nasal cannula. Generally, patient is appears slightly pale. No icterus. No jaundice. No jugular venous distention (JVD) or thyromegaly. Lungs are clear to auscultation. No wheezing, rales or rhonchi. Heart: S1, S2, sinus rhythm. Abdomen is obese, soft, nontender, and nondistended. Positive bowel sounds. Extremities: No cyanosis or clubbing. LABORATORY DATA: Repeat complete blood count (CBC) is not available. Current CBC at 3 a.m. is 6.9, decreased from 9 from 1430 04/26/2020 white count 6.7, hematocrit 21, platelet count of 190. Sodium 145, potassium 3.5, chloride 117, bicarbonate 23, BUN 29, creatinine 0.83, glucose of 105, lactic acid 0.9, calcium of 6.6. IMAGING STUDIES: CT abdomen and pelvis 04/26/2020: No evidence of bowel obstruction. No acute abdominopelvic pathology. Stable right renal cyst. Previous gastric bypass surgery and cholecystectomy. ASSESSMENT AND PLAN: This is a 49-year-old female morbidly obese, body mass index (BMI) of 36.9, previous gastric bypass surgery, cholecystectomy, and abdominal surgery due to peptic ulcer disease, depression, reflux, and chronic osteoarthritis presented to the emergency room with complaints of melena, abdominal pain worse 7/10 with food and dark tarry stools. The day prior to presentation the patient had been taking Naprosyn 500 twice a day for arthritis. The patient was admitted for gastrointestinal (GI) bleed secondary to nonsteroidal anti-inflammatory drug (NSAID) use in the setting of prior gastric bypass surgery with history of bleeding from a peptic ulcer. She was placed on total parenteral nutrition (TPN) but had not been taking it. Her admission hemoglobin was 9 from prior hemoglobin of 12 in 2019 and subsequently brought in to the operating room (OR) due to hemoglobin of 6.9 with massive bleed. A massive transfusion protocol was called. She was found to have no oozing ulcers. Currently on octreotide drip. CURRENT ISSUES: 1. Acute blood loss anemia requiring transfer to progressive care unit (PCU) and emergent EGD. No active oozing. Ulcer was noted. Currently on octreotide and IV Protonix managed by general surgery, Dr. Galen Chery. Defer to surgery regarding timing of oral intake. She is currently asking for ice chips but will defer to general surgery for decision of what diet to start. 2. History of chronic arthritis. Avoid nonsteroidal anti-inflammatory drugs (NSAIDs) in light of GI bleed. 3. Reflux disease, on proton pump inhibitor (PPI). 4. Depression. No acute suicidal or homicidal ideation. 5. Obesity, BMI of 36.9, complicating care. [facility]
[2020-04-28 12:00] VITALS: BP 140/82
[2020-04-28 12:14] LABS: HEMATOCRIT 27.5 % (36.0-47.0); HEMOGLOBIN 9.1 g/dl (12.0-15.5)
--- NOTE | 2020-04-28 14:00 | IPNPDOC ---
Text Note Date of Service The patient was seen on 04/28/20. NOTE Subjective: Patient is a 49-year-old female with a PMHx of Gastric bypass (2013), PUD s/p surgery, Chronic OA, Depression, Morbid obesity, GERD, who presented to the hospital. Complains of abdominal pain and dark stools. Patient was admitted to the hospitalist service for suspected GI bleed. Surgery was called on consultation. Patient was taken to the OR on 04/[address] Chery. Patient was seen and examined at the bedside. , Currently patient denies any headache, nausea, vomiting, abdominal pain, diarrhea, or urinary discomfort. Denies chest pain, shortness breath or palpitations. Reports that they did experience a dark-colored bowel movement earlier. Objective: Vitals (See below) General: Lying in bed, appears comfortable, AAOx3 HEENT: NC, AT CVS: +S1S2 Lungs: Fair air entry b/l, -w/r/r Abdomen: Soft, ND, NT Extremities: - Edema, - Calf tenderness Assessment and plan: s/p Acute blood loss anemia - possibly 2/2 upper GI bleeding 2/2 ulcers - Currently patient is hemodynamically stable and afebrile - Hemoglobin remained stable over the last 24-48 hours - s/p 4 units of PRBC - c/w Protonix IV; will DC octreotide - c/w Carafate - Avoid NSAID use - Will advance diet to full liquids - If Hg remains stable will advance diet tomorrow and transition to Protonix PO - General surgery on consultation; appreciate their input Gastric bypass (2013) - Hx of PUD s/p surgery Chronic OA - Patient has been advised to avoid NSAID use in the future - c/w Tylenol / Percocet PRN ; will DC Morphine Depression - Currently not on any medications Morbid obesity - BMI of 38.4 - Complicating medical care GERD - c/w Protonix DVT prophylaxis - c/w TEDs/Sequentials VS,Fishbone, I+O VS, Fishbone, I+O Laboratory Tests 04/27/20 18:18 04/28/20 00:29 04/28/20 04:22 04/28/20 11:59 Vital Signs Date Time Temp Pulse Resp B/P (MAP) Pulse Ox O2 Delivery O2 Flow Rate FiO2 6/30/20 12:00 98.3 61 18 140/82 (101) 99 Room Air 04/27/20 07:33 I&O- Last 24 Hours up to 6 AM 04/28/20 06:00 Intake Total 2290 ml Output Total 2800 ml Balance -510 ml JUANA FISH MD Apr 28, 2020 14:00
[2020-04-28 18:13] LABS: HEMOGLOBIN 8.9 g/dl (12.0-15.5)
[2020-04-28 20:00] VITALS: BP 132/88
[2020-04-28 21:28] VITALS: BP 134/84
[2020-04-29] VITALS (13 sets, daily range): BP systolic 128–154; BP diastolic 66–95
[2020-04-29 00:31] LABS: HEMATOCRIT 24.9 % (36.0-47.0); HEMOGLOBIN 8.1 g/dl (12.0-15.5)
[2020-04-29] MEDS: PANTOPRAZOLE 40MG VIAL (C9113 PER 1) IV SCH (05:02)
[2020-04-29 05:41] LABS: HEMATOCRIT 25.3 % (36.0-47.0); HEMOGLOBIN 8.2 g/dl (12.0-15.5); MEAN CORPUSCULAR HEMOGLOBIN 29.2 pg (27.0-33.0); MEAN CORPUSCULAR HGB CONC 32.4 g/dl (32.0-36.5); PLATELET COUNT, AUTOMATED 166 10^3/uL (150-450); RED BLOOD COUNT 2.81 10^6/uL (4.00-5.40); WHITE BLOOD COUNT 4.6 10^3/uL (4.0-10.0)
[2020-04-29 06:13] LABS: BLOOD UREA NITROGEN 15 MG/DL (7-18); CALCIUM LEVEL 7.7 MG/DL (8.5-10.1); CARBON DIOXIDE LEVEL 28 MEQ/L (21-32); CHLORIDE LEVEL 108 MEQ/L (98-107); CREATININE FOR GFR 0.91 MG/DL (0.55-1.30); GLOMERULAR FILTRATION RATE > 60.0 (>58); GLUCOSE, FASTING 102 MG/DL (70-100); POTASSIUM SERUM 3.7 MEQ/L (3.5-5.1); SODIUM LEVEL 138 MEQ/L (136-145)
[2020-04-29] MEDS: SUCRALFATE SUSP 1GM/10ML UD PO SCH (09:20)
[2020-04-29] MEDS: HYDROCORTISONE 1% CREAM 30 GM TOP SCH ×2 (09:21→21:00)
--- NOTE | 2020-04-29 10:42 | IPNPDOC ---
Text Note Date of Service The patient was seen on 04/29/20. NOTE Subjective: Patient is a 49-year-old female with a PMHx of Gastric bypass (2013), PUD s/p surgery, Chronic OA, Depression, Morbid obesity, GERD, who presented to the hospital. Complains of abdominal pain and dark stools. Patient was admitted to the hospitalist service for suspected GI bleed. Surgery was called on consultation. Patient was taken to the OR on 04/[address] Chery. Patient was seen and examined at the bedside. Patient reports that she feels relatively fine. Patient reports that she has not had a bowel movement since yesterday. She denies any chest pain, lightheadedness, dizziness, palpitations. Denies any urinary discomfort. Objective: Vitals (See below) General: Lying in bed, appears comfortable, AAOx3 HEENT: NC, AT CVS: +S1S2 Lungs: Fair air entry b/l, [place] wheezing, rhonchi or crackles Abdomen: Soft, nondistended, without tenderness Extremities: Lower extremities are free of edema, - Calf tenderness Assessment and plan: s/p Acute blood loss anemia - possibly 2/2 upper GI bleeding 2/2 ulcers - Currently patient is hemodynamically stable and afebrile - Hemoglobin has had a slight trend down; does not appear to have any additional bleeding - s/p 4 units of PRBC - s/p octreotide - c/w Carafate and will adjust Protonix to PO - Avoid NSAID use - Will advance diet to mechanical soft for now - Will transfuse 2 units PRBC to bring Hg closer to baseline - General surgery on consultation; appreciate their input Gastric bypass (2013) - Hx of PUD s/p surgery - Will have dietary consult Chronic OA - Patient has been advised to avoid NSAID use in the future - c/w Tylenol / Percocet PRN ; will DC Morphine Depression - Currently not on any medications Morbid obesity - BMI of 38.4 - Complicating medical care - Will consult dietary GERD - c/w Protonix DVT prophylaxis - c/w TEDs/Sequentials Disposition: - Anticipate DC within 24-48 hours VS,Fishbone, I+O VS, Fishbone, I+O Laboratory Tests 04/28/20 11:59 04/28/20 18:00 04/29/20 00:11 04/29/20 05:20 Vital Signs Date Time Temp Pulse Resp B/P (MAP) Pulse Ox O2 Delivery O2 Flow Rate FiO2 04/29/20 10:22 98.7 51 20 131/84 100 Room Air 04/27/20 07:33 I&O- Last 24 Hours up to 6 AM 04/29/20 06:00 Intake Total 3525 ml Output Total 4775 ml Balance -1250 ml JUANA FISH MD Apr 29, 2020 10:41
[2020-04-29 17:10] LABS: HEMATOCRIT 31.3 % (36.0-47.0)
[2020-04-29 17:12] LABS: HEMOGLOBIN 10.2 g/dl (12.0-15.5)
[2020-04-29 20:36] LABS: HEMATOCRIT 31.2 % (36.0-47.0); HEMOGLOBIN 10.1 g/dl (12.0-15.5)
[2020-04-29] MEDS: PANTOPRAZOLE 40MG TAB (PROTONIX) PO SCH (20:59)
[2020-04-30 06:00] VITALS: BP_SYST 143; BP_DIAS 67; BP_DIAS 86
[2020-04-30 06:28] LABS: HEMATOCRIT 29.4 % (36.0-47.0); HEMOGLOBIN 9.6 g/dl (12.0-15.5); MEAN CORPUSCULAR HEMOGLOBIN 29.4 pg (27.0-33.0); MEAN CORPUSCULAR HGB CONC 32.7 g/dl (32.0-36.5); MEAN CORPUSCULAR VOLUME 89.9 fl (80.0-96.0); PLATELET COUNT, AUTOMATED 164 10^3/uL (150-450); RED BLOOD COUNT 3.27 10^6/uL (4.00-5.40); WHITE BLOOD COUNT 4.7 10^3/uL (4.0-10.0)
[2020-04-30 06:56] LABS: BLOOD UREA NITROGEN 14 MG/DL (7-18); CALCIUM LEVEL 7.7 MG/DL (8.5-10.1); CARBON DIOXIDE LEVEL 29 MEQ/L (21-32); CHLORIDE LEVEL 107 MEQ/L (98-107); CREATININE FOR GFR 0.92 MG/DL (0.55-1.30); GLOMERULAR FILTRATION RATE > 60.0 (>58); GLUCOSE, FASTING 87 MG/DL (70-100); POTASSIUM SERUM 3.8 MEQ/L (3.5-5.1); SODIUM LEVEL 140 MEQ/L (136-145)
[2020-04-30] MEDS ORDERED: SUCR1TA PO (08:52)
[2020-04-30] MEDS ORDERED: PANT40TA29 PO (08:52)
[2020-04-30] MEDS: HYDROCORTISONE 1% CREAM 30 GM TOP SCH (09:23)
[2020-04-30] MEDS: PANTOPRAZOLE 40MG TAB (PROTONIX) PO SCH (09:23)
[2020-04-30] MEDS: SUCRALFATE SUSP 1GM/10ML UD PO SCH (09:23)
--- NOTE | 2020-04-30 10:42 | DS.PDOC ---
Discharge Summary General Date of Admission Apr 26, 2020 at 17:26 Date of Discharge 04/30/2020 Discharge Summary PROCEDURES PERFORMED DURING STAY: [None]. ADMITTING DIAGNOSES / DISCHARGE DIAGNOSES: s/p Acute blood loss anemia - possibly 2/2 upper GI bleeding 2/2 ulcers Gastric bypass (2013) Chronic OA Depression Morbid obesity GERD DVT prophylaxis COMPLICATIONS/CHIEF COMPLAINT: Abdominal pain / GI bleed HISTORY OF PRESENT ILLNESS: Patient is a 49-year-old female with a PMHx of Gastric bypass (2013), PUD s/p surgery, Chronic OA, Depression, Morbid obesity, GERD, who presented to the hospital. Complains of abdominal pain and dark stools. Patient was admitted to the hospitalist service for suspected GI bleed. Surgery was called on consultation. Patient was taken to the OR on 04/[address] Chery. HOSPITAL COURSE: s/p Acute blood loss anemia - possibly 2/2 upper GI bleeding 2/2 ulcers - No further episodes of bleeding noted; no bowel movements in >24 hours - Currently patient is hemodynamically stable and afebrile - Hemoglobin has had a slight trend down; does not appear to have any additional bleeding - s/p 6 units of PRBC; H&H has remains stable - s/p octreotide - c/w Carafate and Protonix PO - Avoid NSAID use - Diet fully advanced and tolerating - General surgery on consultation; appreciate their input; will have outpatient follow up within 7 days Gastric bypass (2013) - Hx of PUD s/p surgery - Dietary was consulted; will continue with outpatient followup Chronic OA - Patient has been advised to avoid NSAID use in the future - c/w Tylenol; will DC Percocet PRN ; s/p Morphine Depression - Currently not on any medications Morbid obesity - BMI of 38.4 - Complicating medical care - Dietary was consulted; will continue with outpatient followup GERD - c/w Protonix DVT prophylaxis - c/w TEDs/Sequentials DISCHARGE MEDICATIONS: Please see below. ALLERGIES: Please see below. PHYSICAL EXAMINATION ON DISCHARGE: Vitals (See below) General: Lying in bed, remains comfortable, AAOx3 HEENT: NC, AT CVS: +S1S2 Lungs: Air entry is fair bilaterally, with evidence of rhonchi, crackles or wheezing Abdomen: Soft, without any distention or tenderness Extremities: No evidence of LE edema, - Calf tenderness LABORATORY DATA: Please see below. ACTIVITY: [As tolerated]. DISCHARGE PLAN: Follow-up with primary care provider and Gen. surgery within 7 days Remain compliant with treatment plan and medications Return to the ER if you experience any problems DISPOSITION: Home DISCHARGE CONDITION: [Stable]. TIME SPENT ON DISCHARGE: 35 minutes. Vital Signs/I&Os Vital Signs Date Time Temp Pulse Resp B/P (MAP) Pulse Ox O2 Delivery O2 Flow Rate FiO2 04/30/20 06:00 97.4 56 17 143/86 (105) 98 Room Air 04/27/20 07:33 I&O- Last 24 Hours up to 6 AM 04/30/20 06:00 Intake Total 2650 ml Output Total 3400 ml Balance -750 ml Laboratory Data Labs 24H Laboratory Tests 2 04/29/20 14:30: Lab Scanned Report Transfusion Record 04/30/20 06:00: Nucleated Red Blood Cells % (auto) 0.0, Anion Gap 4L, Glomerular Filtration Rate > 60.0, Calcium Level 7.7L CBC/BMP Laboratory Tests 04/29/20 17:01 04/29/20 20:19 04/30/20 06:00 Discharge Medications Scheduled Omeprazole (Omeprazole) 40 Mg Capsule.dr, 40 MG PO DAILY, (Reported) Pantoprazole Sodium (Pantoprazole Sodium) 40 Mg Tablet.dr, 40 MG PO BID Sucralfate (Sucralfate) 1 Gm Tablet, 1 TAB PO QID Triamcinolone Acet (Triamcinolone Acetonide 0.1% Crm) 80 Gm Cream..g., 1 APPLIC TOP DAILY, (Reported) APPLY TO FEET Scheduled PRN Zolpidem Tartrate (Zolpidem Tartrate) 10 Mg Tablet, 10 MG PO QHS PRN for SLEEP, (Reported) Allergies Coded Allergies: banana (Unverified Allergy, Severe, 08/24/19) Penicillins (Verified Allergy, Intermediate, HIVES, 08/24/19) BEANS (Verified Allergy, Unknown, CANNED BAKED BEANS, 05/08/06) [place] (Verified Allergy, Unknown, 05/08/06) pineapple (Verified Allergy, Unknown, 08/24/19) bupropion (Verified Adverse Reaction, Unknown, SEIZURES, 08/24/19) JUANA FISH MD Apr 30, 2020 10:42
--- NOTE | 2020-07-17 12:31 | RO ---
DATE OF OPERATION: 04/27/2020 PREOPERATIVE DIAGNOSIS: Upper GI bleeding. POSTOPERATIVE DIAGNOSIS: Marginal ulcer/gastric ulcer. PROCEDURE: Upper endoscopy. SURGEON: Galen Chery MD TANK BUILDER: ANESTHESIA: General endotracheal anesthesia. BRIEF PROCEDURE SUMMARY: The patient was brought to the operating room, was given IV sedation, and was placed in left lateral decubitus position. The gastroscope was inserted into the posterior oropharynx down the esophagus without difficulty. The esophagus appeared normal without any esophagitis, no lesions, and no ulcerations. Stomach revealed normal size pouch, no significant inflammation was appreciated. However, right at the gastrojejunostomy anastomosis I could see some sutures visible but this was the area that was not bleeding, it was actually right at the anastomosis and mostly on the gastric side of this. There was a small blood clot on the area, I was able to wipe this away and no active bleeding came from the site. No visible vessels appreciated. The jejunum was entered and revealed no significant abnormalities in the jejunum, no bleeding from this site. Scope was brought back into the stomach, reevaluating the ulcer area and once again no active bleeding had been appreciated. The scope was gradually removed at this time revealing no the significant esophageal abnormalities. The recommendation at this time is to continue PPI and Carafate and Octreotide drip can be stopped as well as probable increase diet to clears and advance diet as tolerated thereafter. She can follow up with GI who has seen her in the past or myself as an outpatient in 2-3 weeks. [facility]
== END 2020-04-30 12:51 | disposition home or self-care (01) | DRG 811 ==
LOC: M ED 14:04 → ENRESERV 17:00 → M ED 17:20 → M MSPAV 17:26 → M PCU 04-27 03:31 → M ICU 04-27 03:59 → M PCU 04-27 15:50 → M MSPAV 04-28 21:25
PROVIDERS: ADMIT Student in an Organized Health Care Education/Training Program; ATTEND Internal Medicine
PROC: 30233N1 Transfusion of Nonautologous Red Blood Cells into Peripheral Vein, Percutaneous Approach (ICD-10-PCS; 2020-04-26)
PROC: 0DCA8ZZ Extirpation of Matter from Jejunum, Via Natural or Artificial Opening Endoscopic (ICD-10-PCS; principal; 2020-04-27 05:19)
DX: D62 Acute posthemorrhagic anemia (principal); K28.4 Chronic or unspecified gastrojejunal ulcer with hemorrhage; F32.9 Major depressive disorder, single episode, unspecified; K21.9 Gastro-esophageal reflux disease without esophagitis; F17.200 Nicotine dependence, unspecified, uncomplicated; Z98.84 Bariatric surgery status; E66.9 Obesity, unspecified; M19.90 Unspecified osteoarthritis, unspecified site; Z68.36 Body mass index [BMI] 36.0-36.9, adult; Z11.59 Encounter for screening for other viral diseases

== ENCOUNTER → 2020-05-08 | Outpatient (REF) | payer MEDICARE, MEDICAID ==
[~2020-05-08] MED LIST changes: +SUCR1TA PO; +TRIA1CR80 TOP
[2020-05-08 17:44] LABS: BASO % 0.6 % (0.0-1.0); EOS # 0.2 10^3/uL (0.0-0.5); EOS % 4.9 % (0.0-3.0); HEMOGLOBIN 10.9 g/dl (12.0-15.5); LYMPH # 1.2 10^3/uL (1.5-5.0); LYMPH % 24.7 % (24.0-44.0); MEAN CORPUSCULAR HEMOGLOBIN 28.5 pg (27.0-33.0); MEAN CORPUSCULAR HGB CONC 31.1 g/dl (32.0-36.5); MEAN CORPUSCULAR VOLUME 91.6 fl (80.0-96.0); MONO # 0.5 10^3/uL (0.0-0.8); MONO % 10.5 % (0.0-5.0); NEUTROPHILS # 2.7 10^3/uL (1.5-8.5); NEUTROPHILS % 59.1 % (36.0-66.0); PLATELET COUNT, AUTOMATED 290 10^3/uL (150-450); RED BLOOD COUNT 3.82 10^6/uL (4.00-5.40); WHITE BLOOD COUNT 4.7 10^3/uL (4.0-10.0)
[2020-05-08 17:56] LABS: ALBUMIN 3.1 GM/DL (3.2-5.2); ALT/SGPT 15 U/L (12-78); BILIRUBIN,TOTAL 0.4 MG/DL (0.2-1.0); BLOOD UREA NITROGEN 13 MG/DL (7-18); CALCIUM LEVEL 8.3 MG/DL (8.5-10.1); CARBON DIOXIDE LEVEL 23 MEQ/L (21-32); CHLORIDE LEVEL 109 MEQ/L (98-107); CHOLESTEROL LEVEL 149 MG/DL (<200); CHOLESTEROL RISK RATIO 3.311 (<5); CREATININE FOR GFR 0.93 MG/DL (0.55-1.30); FREE T4 1.04 NG/DL (0.76-1.46); GLOMERULAR FILTRATION RATE > 60.0 (>58); GLUCOSE, FASTING 74 MG/DL (70-100); HDL CHOLESTEROL 45 MG/DL (>40); LDL CHOLESTEROL 87 MG/DL (<100); NON-HDL-C 104 MG/DL; POTASSIUM SERUM 4.2 MEQ/L (3.5-5.1); RHEUMATOID FACTOR QUANT < 10.0 IU/ML (<15.0); SODIUM LEVEL 138 MEQ/L (136-145); TOTAL PROTEIN 6.3 GM/DL (6.4-8.2); TRIGLYCERIDES LEVEL 85 MG/DL (<150)
[2020-05-08 17:57] LABS: TOTAL 25(OH) VITAMIN D 27.2 NG/ML (30.0-100.0)
[2020-05-11 13:05] LABS: ANTINUCLEAR ANTIBODIES DIRECT Negative (Negative)
== END ==
LOC: M LAB REF 16:25
PROVIDERS: ATTEND Physician Assistant
DX: M25.572 Pain in left ankle and joints of left foot (principal); M25.571 Pain in right ankle and joints of right foot; Z78.0 Asymptomatic menopausal state; N92.1 Excessive and frequent menstruation with irregular cycle; G47.00 Insomnia, unspecified; E55.9 Vitamin D deficiency, unspecified; K21.9 Gastro-esophageal reflux disease without esophagitis; L20.9 Atopic dermatitis, unspecified; R10.2 Pelvic and perineal pain; I10 Essential (primary) hypertension; Z79.899 Other long term (current) drug therapy

== ENCOUNTER → 2020-05-27 | Outpatient (REF) | payer MEDICARE, MEDICAID ==
[2020-06-22 09:09] LABS: BASO % 0.9 % (0.0-1.0); EOS # 0.2 10^3/uL (0.0-0.5); EOS % 6.8 % (0.0-3.0); HEMOGLOBIN 11.1 g/dl (12.0-15.5); LYMPH # 1.1 10^3/uL (1.5-5.0); LYMPH % 32.9 % (24.0-44.0); MEAN CORPUSCULAR HGB CONC 31.7 g/dl (32.0-36.5); MEAN CORPUSCULAR VOLUME 91.4 fl (80.0-96.0); MONO # 0.3 10^3/uL (0.0-0.8); MONO % 10.2 % (0.0-5.0); NEUTROPHILS # 1.6 10^3/uL (1.5-8.5); NEUTROPHILS % 48.9 % (36.0-66.0); PLATELET COUNT, AUTOMATED 230 10^3/uL (150-450); RED BLOOD COUNT 3.83 10^6/uL (4.00-5.40); WHITE BLOOD COUNT 3.3 10^3/uL (4.0-10.0)
== END ==
LOC: M LAB REF 06:38
PROVIDERS: ATTEND Nurse Practitioner Family
DX: K92.2 Gastrointestinal hemorrhage, unspecified (principal)

== ENCOUNTER 2023-09-18 13:23 | Emergency (ER) | payer MEDICARE, MEDICAID ==
[~2023-09-18] VITALS: Ht 177.8 cm; Wt 117.5 kg
[~2023-09-18 13:23] MED LIST changes: +BUPR-71 PO; -BUPR150T5 PO; +ESCI10TA16; +ESCI10TA16 PO; -ESCI10TA2; -ESCI10TA2 PO; -ESCI20TA PO; +ESCI20TA16 PO; -LISI-538 PO; +LISI20TA33 PO; -OMEP-221 PO; +OMEP40CA5 PO
[2023-09-18] MEDS ORDERED: LISI10TA22 PO (13:44)
[2023-09-18] MEDS ORDERED: LORA-1041 PO (13:44)
[2023-09-18] MEDS ORDERED: FLON1SPR NARES (13:44)
[2023-09-18 15:02] LABS: BASO % 0.5 % (0.0-1.0); EOS # 0.2 10^3/uL (0.0-0.5); EOS % 3.8 % (0.0-3.0); HEMATOCRIT 38.7 % (36.0-47.0); HEMOGLOBIN 12.8 g/dl (12.0-15.5); LYMPH # 1.7 10^3/uL (1.5-5.0); LYMPH % 26.1 % (24.0-44.0); MEAN CORPUSCULAR HEMOGLOBIN 31.1 pg (27.0-33.0); MEAN CORPUSCULAR HGB CONC 33.1 g/dl (32.0-36.5); MEAN CORPUSCULAR VOLUME 94.2 fl (80.0-96.0); MONO # 0.7 10^3/uL (0.0-0.8); MONO % 10.7 % (2.0-8.0); NEUTROPHILS # 3.7 10^3/uL (1.5-8.5); NEUTROPHILS % 58.7 % (36.0-66.0); PLATELET COUNT, AUTOMATED 292 10^3/uL (150-450); RED BLOOD COUNT 4.11 10^6/uL (4.00-5.40); WHITE BLOOD COUNT 6.3 10^3/uL (4.0-10.0)
[2023-09-18 15:04] LABS: ALBUMIN 3.2 G/DL (3.2-5.2); ALKALINE PHOSPHATASE 92 U/L (46-116); ALT/SGPT 19 U/L (7.0-40); AST/SGOT 48 U/L (<34); BILIRUBIN,DIRECT 0.1 MG/DL (<0.4); BILIRUBIN,TOTAL 0.5 MG/DL (0.3-1.2); BLOOD UREA NITROGEN 13 MG/DL (9-23); CALCIUM LEVEL 8.1 MG/DL (8.5-10.1); CARBON DIOXIDE LEVEL 28 MMOL/L (20-31); CHLORIDE LEVEL 105 MMOL/L (98-107); CK-MB VALUE MASS 1.5 NG/ML (<3.6); CPK CREATINE PHOSPHOKINASE 166 U/L (34-145); CREATININE FOR GFR 0.71 MG/DL (0.55-1.30); GLOMERULAR FILTRATION RATE > 60.0 (>51); GLUCOSE, FASTING 79 MG/DL (60-100); LIPASE 25 U/L (12-53); POTASSIUM SERUM 4.6 MMOL/L (3.5-5.1); SODIUM LEVEL 137 MMOL/L (136-145); TOTAL PROTEIN 6.7 G/DL (5.7-8.2)
[2023-09-18 18:30] VITALS: BP 173/87; TEMP 98.8; O2SAT 98
== END 2023-09-18 18:48 | disposition home or self-care (01) ==
LOC: M ED 13:23
DX: R10.9 Unspecified abdominal pain (principal); I10 Essential (primary) hypertension; Z98.84 Bariatric surgery status; F17.200 Nicotine dependence, unspecified, uncomplicated; Z79.899 Other long term (current) drug therapy; Z88.0 Allergy status to penicillin; Z88.8 Allergy status to other drugs, medicaments and biological substances; Z91.018 Allergy to other foods

== ENCOUNTER → 2024-03-06 | Outpatient (CLI) | payer MEDICARE, MEDICAID ==
[~2024-03-06] MED LIST changes: +FLON1SPR NARES; +LISI10TA22 PO; +LORA-1041 PO
== END ==
LOC: M WHC 12:51
PROVIDERS: ATTEND Nurse Practitioner Family
DX: Z12.31 Encounter for screening mammogram for malignant neoplasm of breast (principal); Z80.3 Family history of malignant neoplasm of breast; Z80.41 Family history of malignant neoplasm of ovary

== ENCOUNTER → 2024-03-06 | Outpatient (REF) | payer MEDICARE, MEDICAID | LOC: M SFHCWAGY 17:43 | PROVIDERS: ATTEND Nurse Practitioner Family | DX: Z12.4 Encounter for screening for malignant neoplasm of cervix (principal); R87.810 Cervical high risk human papillomavirus (HPV) DNA test positive; R87.610 Atypical squamous cells of undetermined significance on cytologic smear of cervix (ASC-US) ==

== ENCOUNTER → 2024-03-19 | Outpatient (REF) | payer MEDICARE, MEDICAID ==
[~2024-03-19] MED LIST changes: +MULT-40 PO; +TRIA0.5O EXT; +VENL225T32 PO
[2024-03-19 18:11] LABS: BASO % 0.7 % (0.0-1.0); EOS # 0.2 10^3/uL (0.0-0.5); EOS % 4.6 % (0.0-3.0); HEMATOCRIT 38.1 % (36.0-47.0); HEMOGLOBIN 12.4 g/dl (12.0-15.5); LYMPH # 1.4 10^3/uL (1.5-5.0); LYMPH % 32.9 % (24.0-44.0); MEAN CORPUSCULAR HEMOGLOBIN 30.8 pg (27.0-33.0); MEAN CORPUSCULAR HGB CONC 32.5 g/dl (32.0-36.5); MEAN CORPUSCULAR VOLUME 94.8 fl (80.0-96.0); MONO # 0.6 10^3/uL (0.0-0.8); MONO % 14.5 % (2.0-8.0); NEUTROPHILS % 47.1 % (36.0-66.0); PLATELET COUNT, AUTOMATED 247 10^3/uL (150-450); RED BLOOD COUNT 4.02 10^6/uL (4.00-5.40); WHITE BLOOD COUNT 4.1 10^3/uL (4.0-10.0)
[2024-03-19 18:23] LABS: HEMOGLOBIN A1c 4.8 % (4.0-6.0)
[2024-03-19 18:44] LABS: ALBUMIN 3.4 G/DL (3.2-5.2); ALKALINE PHOSPHATASE 90 U/L (46-116); ALT/SGPT 18 U/L (7.0-40); AST/SGOT 19 U/L (<34); BILIRUBIN,TOTAL 0.4 MG/DL (0.3-1.2); BLOOD UREA NITROGEN 16 MG/DL (9-23); CALCIUM LEVEL 9.4 MG/DL (8.5-10.1); CARBON DIOXIDE LEVEL 30 MMOL/L (20-31); CHLORIDE LEVEL 109 MMOL/L (98-107); CHOLESTEROL LEVEL 151 MG/DL (<200); CHOLESTEROL RISK RATIO 3.43 (<5); FERRITIN 10.6 NG/ML (7.3-270.7); GLOMERULAR FILTRATION RATE > 60.0 (>51); GLUCOSE, FASTING 74 MG/DL (60-100); HDL CHOLESTEROL 43.9 MG/DL (>40); IRON (FE) 62 UG/DL (50-170); LDL CHOLESTEROL 77.3 MG/DL (<100); MAGNESIUM LEVEL 1.8 MG/DL (1.8-2.4); NON-HDL-C 107.1 MG/DL; PERCENT SATURATION 16.6 % (13.2-45.0); POTASSIUM SERUM 5.3 MMOL/L (3.5-5.1); SODIUM LEVEL 142 MMOL/L (136-145); TOTAL IRON BINDING CAPACITY 373 UG/DL (250-425); TOTAL PROTEIN 6.5 G/DL (5.7-8.2); TRIGLYCERIDES LEVEL 149 MG/DL (<150)
[2024-03-19 18:45] LABS: THYROID STIMULATING HORMONE 1.576 uIU/ML (0.55-4.78); TOTAL 25(OH) VITAMIN D 43.2 NG/ML (20.0-100.0)
[2024-03-19 18:46] LABS: VITAMIN B12 LEVEL 899 PG/ML (211-911)
[2024-03-19 18:50] LABS: FOLATE > 24.0 NG/ML (>5.4)
== END ==
LOC: M LAB REF 17:00
PROVIDERS: ATTEND Nurse Practitioner Family
DX: E66.9 Obesity, unspecified (principal); Z98.84 Bariatric surgery status; E55.9 Vitamin D deficiency, unspecified; R97.20 Elevated prostate specific antigen [PSA]; D50.9 Iron deficiency anemia, unspecified; E07.9 Disorder of thyroid, unspecified

== ENCOUNTER → 2024-04-04 | Outpatient (REF) | payer MEDICARE, MEDICAID ==
[~2024-04-04] MED LIST changes: +BUPR-69 PO; +NICO21PAT TD; +Pill Cutter XX; +TRAZ-252 PO
== END ==
LOC: M SFHCWAGY 17:25
PROVIDERS: ATTEND Nurse Practitioner Family
DX: L29.2 Pruritus vulvae (principal); R23.9 Unspecified skin changes

== ENCOUNTER → 2024-04-12 | Outpatient (REF) | payer MEDICARE, MEDICAID | LOC: M LAB REF 16:20 | PROVIDERS: ATTEND Family Medicine Addiction Medicine | DX: N39.0 Urinary tract infection, site not specified (principal) ==

== ENCOUNTER 2024-06-19 12:54 | Emergency (ER) | payer MEDICARE, MEDICAID ==
[~2024-06-19] VITALS: Ht 177.8 cm; Wt 112.3 kg
[2024-06-19] MEDS: FLUORESCEIN OPHTH 1MG STRIP OS ONE (15:10)
[2024-06-19] MEDS: PROPARACAINE 0.5% OPHTH SOL 15ML OS ONE (15:10)
[2024-06-19 15:25] VITALS: BP 141/80; TEMP 96.8; O2SAT 99
[2024-06-19] MEDS: ERYTHROMYCIN OPHTH OINT OS ONE (15:25)
== END 2024-06-19 15:26 | disposition home or self-care (01) ==
LOC: M ED 12:54 → EDBD 12:54 → M ED 15:26
DX: S05.02XA Injury of conjunctiva and corneal abrasion without foreign body, left eye, initial encounter (principal); I10 Essential (primary) hypertension; F41.9 Anxiety disorder, unspecified; F32.A Depression, unspecified; Z87.891 Personal history of nicotine dependence; Z88.0 Allergy status to penicillin; Z88.8 Allergy status to other drugs, medicaments and biological substances; Z91.018 Allergy to other foods; Z79.810 Long term (current) use of selective estrogen receptor modulators (SERMs); Z79.899 Other long term (current) drug therapy; X58.XXXA Exposure to other specified factors, initial encounter

== ENCOUNTER → 2024-08-22 | Outpatient (REF) | payer MEDICARE, MEDICAID ==
[2024-08-22 19:05] LABS: BASO % 0.7 % (0.0-1.0); EOS # 0.4 10^3/uL (0.0-0.5); EOS % 8.4 % (0.0-3.0); HEMOGLOBIN 12.7 g/dl (12.0-15.5); LYMPH # 1.2 10^3/uL (1.5-5.0); LYMPH % 27.4 % (24.0-44.0); MEAN CORPUSCULAR HEMOGLOBIN 31.4 pg (27.0-33.0); MEAN CORPUSCULAR HGB CONC 32.6 g/dl (32.0-36.5); MEAN CORPUSCULAR VOLUME 96.3 fl (80.0-96.0); MONO # 0.5 10^3/uL (0.0-0.8); MONO % 11.2 % (2.0-8.0); NEUTROPHILS # 2.2 10^3/uL (1.5-8.5); NEUTROPHILS % 52.3 % (36.0-66.0); PLATELET COUNT, AUTOMATED 238 10^3/uL (150-450); RED BLOOD COUNT 4.05 10^6/uL (4.00-5.40); WHITE BLOOD COUNT 4.2 10^3/uL (4.0-10.0)
[2024-08-22 19:18] LABS: ERYTHROCYTE SEDIMENTATION RATE 36 mm/hr (0-30)
[2024-08-22 19:27] LABS: C REACTIVE PROTEIN QUANTITATIV < 0.40 MG/DL (<1.0)
[2024-08-22 19:29] LABS: ALBUMIN 3.2 G/DL (3.2-5.2); ALKALINE PHOSPHATASE 100 U/L (46-116); ALT/SGPT 22 U/L (7.0-40); AST/SGOT 19 U/L (<34); BILIRUBIN,TOTAL 0.3 MG/DL (0.3-1.2); BLOOD UREA NITROGEN 15 MG/DL (9-23); CALCIUM LEVEL 9.3 MG/DL (8.5-10.1); CARBON DIOXIDE LEVEL 31 MMOL/L (20-31); CHLORIDE LEVEL 107 MMOL/L (98-107); CREATININE FOR GFR 0.93 MG/DL (0.55-1.30); GLOMERULAR FILTRATION RATE > 60.0 (>51); GLUCOSE, FASTING 81 MG/DL (60-100); POTASSIUM SERUM 4.9 MMOL/L (3.5-5.1); RHEUMATOID FACTOR QUANT 6.4 IU/ML (<14); SODIUM LEVEL 140 MMOL/L (136-145); TOTAL PROTEIN 6.4 G/DL (5.7-8.2)
[2024-08-22 19:30] LABS: THYROID STIMULATING HORMONE 1.565 uIU/ML (0.55-4.78)
== END ==
LOC: M LAB REF 17:36
PROVIDERS: ATTEND Nurse Practitioner Family
DX: I73.00 Raynaud's syndrome without gangrene (principal); L60.8 Other nail disorders

== ENCOUNTER 2024-08-30 11:03 | Inpatient (IN) | payer MEDICARE, MEDICAID ==
[~2024-08-30] VITALS: Ht 177.8 cm; Wt 118.0 kg
[2024-08-30] MEDS ORDERED: FLUTISP (11:21)
[2024-08-30] MEDS ORDERED: DOCU100C16 PO (11:21)
[2024-08-30] MEDS ORDERED: LORA-930 (11:21)
[2024-08-30] MEDS ORDERED: BUPR-69 PO (11:21)
[2024-08-30] MEDS ORDERED: TRAZ1TAB11 PO (11:21)
[2024-08-30 11:59] LABS: BASO % 0.4 % (0.0-1.0); EOS # 0.2 10^3/uL (0.0-0.5); EOS % 3.1 % (0.0-3.0); HEMATOCRIT 40.9 % (36.0-47.0); HEMOGLOBIN 14.1 g/dl (12.0-15.5); LYMPH # 1.5 10^3/uL (1.5-5.0); LYMPH % 20.6 % (24.0-44.0); MEAN CORPUSCULAR HEMOGLOBIN 32.4 pg (27.0-33.0); MEAN CORPUSCULAR HGB CONC 34.5 g/dl (32.0-36.5); MONO # 0.5 10^3/uL (0.0-0.8); MONO % 6.9 % (2.0-8.0); NEUTROPHILS # 4.9 10^3/uL (1.5-8.5); NEUTROPHILS % 68.7 % (36.0-66.0); PLATELET COUNT, AUTOMATED 275 10^3/uL (150-450); RED BLOOD COUNT 4.35 10^6/uL (4.00-5.40); WHITE BLOOD COUNT 7.2 10^3/uL (4.0-10.0)
[2024-08-30 12:28] LABS: LIPASE 27 U/L (12-53)
[2024-08-30 12:30] LABS: ALBUMIN 3.4 G/DL (3.2-5.2); ALKALINE PHOSPHATASE 114 U/L (35-104); ALT/SGPT 36 U/L (7.0-40); AST/SGOT 37 U/L (<34); BILIRUBIN,DIRECT 0.2 MG/DL (<0.4); BILIRUBIN,TOTAL 0.7 MG/DL (0.3-1.2); BLOOD UREA NITROGEN 15 MG/DL (9-23); CALCIUM LEVEL 10.1 MG/DL (8.5-10.1); CARBON DIOXIDE LEVEL 27 MMOL/L (20-31); CHLORIDE LEVEL 104 MMOL/L (98-107); CREATININE FOR GFR 1.04 MG/DL (0.55-1.30); GLOMERULAR FILTRATION RATE 59.5 (>51); GLUCOSE, FASTING 90 MG/DL (60-100); POTASSIUM SERUM 4.6 MMOL/L (3.5-5.1); SODIUM LEVEL 136 MMOL/L (136-145); TOTAL PROTEIN 7.1 G/DL (5.7-8.2)
[2024-08-30 12:42] LABS: HCG, SERUM QUALITATIVE NEGATIVE (NEGATIVE)
[2024-08-30] MEDS: ONDANSETRON 4MG 2ML VIAL IV ONE (13:12)
[2024-08-30] MEDS: MORPHINE 4 MG/ML 1ML VIAL IV PRN (13:13)
[2024-08-30] MEDS ORDERED: ISOVUE-370 76% 100ML VIAL As Ordered ONE (13:28)
[2024-08-30] MEDS: HYDROMORPHONE HCL 0.5 MG/ 0.5 ML SYRINGE IV PRN (14:46)
[2024-08-30] MEDS ORDERED: NALOXONE INJ 0.4MG/1ML VIAL IV PRN (15:00)
[2024-08-30] MEDS ORDERED: DEXTROSE 50% 50ML SYRINGE IV PRN (15:15)
[2024-08-30] MEDS ORDERED: GLUCAGON INJ 1MG VIAL SC PRN (15:15)
[2024-08-30] MEDS ORDERED: GLUCOSE 4 GM CHEW PO PRN (15:15)
[2024-08-30] MEDS: NS 1,000 ML IV ONE (15:52)
[2024-08-30] MEDS: HYDROMORPHONE HCL 0.5 MG/ 0.5 ML SYRINGE IV ONE (15:56)
[2024-08-30] MEDS ORDERED: HOME MED LIST COMPLETE! XX SCH (16:15)
[2024-08-30 16:43] VITALS: BP 158/83; TEMP 97.5; O2SAT 98
[2024-08-30] MEDS: KETOROLAC 30 MG/ML 1ML VIAL IV SCH (16:59)
[2024-08-30] MEDS: hydrALAZINE 20MG/ML 1ML VIAL IV SCH (17:00)
[2024-08-30] MEDS: SCOPOLAMINE 1MG TRANSDERMAL PATCH TOP SCH (17:00)
[2024-08-30] MEDS: NS 1,000 ML IV SCH (17:00)
[2024-08-30] MEDS: ONDANSETRON 4MG 2ML VIAL IV PRN (17:00)
[2024-08-30 19:46] VITALS: BP 125/86; TEMP 97.2; O2SAT 97
[2024-08-30] MEDS: PANTOPRAZOLE 40MG VIAL IV SCH (20:22)
[2024-08-30 23:02] VITALS: BP 131/79; TEMP 97.5; O2SAT 96
[2024-08-31 03:34] VITALS: BP 124/82; TEMP 96.8; O2SAT 98
[2024-08-31 03:35] VITALS: BP 124/82
[2024-08-31 07:17] VITALS: BP 126/81; TEMP 96.7; O2SAT 96
[2024-08-31] MEDS: BISACODYL 10MG SUPP PR ONE ×3 (10:22→21:11)
[2024-08-31] MEDS: DEXTROSE 50% 50ML SYRINGE IV STA (11:11)
[2024-08-31 16:14] VITALS: BP 127/83; TEMP 97.2; O2SAT 97
[2024-08-31] MEDS: MORPHINE 10 MG/ML 1ML VIAL IV PRN (18:04)
[2024-08-31 19:36] VITALS: BP 122/82; TEMP 97; O2SAT 99
[2024-08-31] MEDS ORDERED: BENAZEPRIL 20 MG TAB PO ONE (23:20)
[2024-08-31] MEDS: diphenhydrAMINE 25MG CAP PO ONE (23:38)
[2024-09-01 03:19] VITALS: BP 139/89; TEMP 97.4; O2SAT 98
[2024-09-01] MEDS: diphenhydrAMINE 25MG CAP PO ONE (05:05)
[2024-09-01 08:20] LABS: HEMATOCRIT 35.2 % (36.0-47.0); HEMOGLOBIN 11.5 g/dl (12.0-15.5); MEAN CORPUSCULAR HEMOGLOBIN 32.1 pg (27.0-33.0); MEAN CORPUSCULAR HGB CONC 32.7 g/dl (32.0-36.5); MEAN CORPUSCULAR VOLUME 98.3 fl (80.0-96.0); PLATELET COUNT, AUTOMATED 190 10^3/uL (150-450); RED BLOOD COUNT 3.58 10^6/uL (4.00-5.40); WHITE BLOOD COUNT 3.6 10^3/uL (4.0-10.0)
[2024-09-01 08:22] VITALS: BP 132/82; TEMP 97.8; O2SAT 97
[2024-09-01] MEDS ORDERED: NICOTINE 21MG/24HR 1 EA TRANSDERMAL TD PRN (08:30)
[2024-09-01 08:45] LABS: BLOOD UREA NITROGEN 12 MG/DL (9-23); CALCIUM LEVEL 8.1 MG/DL (8.5-10.1); CARBON DIOXIDE LEVEL 25 MMOL/L (20-31); CHLORIDE LEVEL 108 MMOL/L (98-107); CREATININE FOR GFR 0.91 MG/DL (0.55-1.30); GLOMERULAR FILTRATION RATE > 60.0 (>51); GLUCOSE, FASTING 80 MG/DL (60-100); MAGNESIUM LEVEL 1.7 MG/DL (1.8-2.4); SODIUM LEVEL 138 MMOL/L (136-145)
[2024-09-01] MEDS: MOM 30ML SUSPENSION UDC PO ONE (09:13)
[2024-09-01] MEDS: BISACODYL 10MG SUPP PR ONE (09:13)
[2024-09-01] MEDS: DOCUSATE SODIUM 100MG CAPSULE PO SCH (09:14)
[2024-09-01] MEDS: PANTOPRAZOLE 40MG TAB (PROTONIX) PO SCH (09:14)
[2024-09-01] MEDS: LORATADINE 10 MG TAB PO SCH (09:14)
[2024-09-01] MEDS: ACETAMINOPHEN 500 MG TAB PO PRN (09:19)
[2024-09-01] MEDS: FLUTICASONE PROP 0.05% NASAL SPRAY 16 GM (FLONASE) SCH (10:37)
[2024-09-01 16:00] VITALS: BP 127/65; TEMP 97.3; O2SAT 96
[2024-09-01] MEDS ORDERED: TRIAMCINOLONE ACET 0.1% OINTMENT 15GM TOP PRN (16:10)
[2024-09-01] MEDS: diphenhydrAMINE 25MG CAP PO PRN (16:37)
[2024-09-01] MEDS: traZODone 50 MG TAB PO SCH (20:02)
[2024-09-01] MEDS: diphenhydrAMINE CREAM 30GM TOP PRN (20:03)
[2024-09-01 20:12] VITALS: BP 141/89; TEMP 96.5; O2SAT 97
[2024-09-01 21:30] VITALS: BP 131/81; TEMP 98.1; O2SAT 96
[2024-09-02 04:12] VITALS: BP 126/77; TEMP 97.9; O2SAT 98
== END 2024-09-02 11:13 | disposition home or self-care (01) | DRG 390 ==
LOC: M ED 11:03 → M ED INP 14:55 → M PCU 16:44 → M MSPAV 09-01 21:25
PROVIDERS: ADMIT General Practice; ATTEND General Practice
DX: K56.600 Partial intestinal obstruction, unspecified as to cause (principal); E66.9 Obesity, unspecified; F32.A Depression, unspecified; K21.9 Gastro-esophageal reflux disease without esophagitis; M19.90 Unspecified osteoarthritis, unspecified site; K59.09 Other constipation; E16.2 Hypoglycemia, unspecified; F17.200 Nicotine dependence, unspecified, uncomplicated; I16.0 Hypertensive urgency; I10 Essential (primary) hypertension; Z68.36 Body mass index [BMI] 36.0-36.9, adult; Z79.899 Other long term (current) drug therapy; Z88.0 Allergy status to penicillin; Z88.8 Allergy status to other drugs, medicaments and biological substances; Z90.49 Acquired absence of other specified parts of digestive tract; Z91.018 Allergy to other foods; Z98.84 Bariatric surgery status

== ENCOUNTER → 2024-12-23 | Outpatient (CLI) | payer MEDICARE, MEDICAID ==
[~2024-12-23] MED LIST changes: +DOCU100C16 PO; +FLUTISP; +LORA-930; +LORA-930 PO; +NICO2GUM41 PO; +POLY510P14 PO; +THERTAB52 PO; +TRAZ1TAB11 PO
== END ==
LOC: M SOG 07:50
PROVIDERS: ATTEND Physician Assistant
DX: M17.11 Unilateral primary osteoarthritis, right knee (principal)

== ENCOUNTER 2025-07-01 15:15 | Emergency (ER) | payer MEDICARE, MEDICAID ==
[~2025-07-01] VITALS: Ht 179.1 cm; Wt 136.4 kg
[~2025-07-01 15:15] MED LIST changes: +PROZ10CA11 PO; -PROZ10CA7 PO; +VENL225T PO; -VENL225T32 PO
[2025-07-01 16:28] LABS: PLATELET COUNT, AUTOMATED 305 10^3/uL (150-450)
[2025-07-01 16:56] LABS: AMPHETAMINES LEVEL URINE NEGATIVE (NEGATIVE); BARBITURATES URINE NEGATIVE (NEGATIVE); BENZODIAZEPINES URINE NEGATIVE (NEGATIVE); CANNABINOIDS URINE NEGATIVE (NEGATIVE); COCAINE METABOLITE URINE NEGATIVE (NEGATIVE); METHADONE URINE NEGATIVE (NEGATIVE); OPIATES URINE NEGATIVE (NEGATIVE); PHENCYCLIDINE URINE NEGATIVE (NEGATIVE)
[2025-07-01 17:00] LABS: ALT/SGPT 26 U/L (7.0-40); AST/SGOT 29 U/L (<34); CALCIUM LEVEL 8.7 MG/DL (8.5-10.1); CARBON DIOXIDE LEVEL 27 MMOL/L (20-31); CHLORIDE LEVEL 106 MMOL/L (98-107); CREATININE FOR GFR 0.93 MG/DL (0.55-1.30); GLOMERULAR FILTRATION RATE 74.0 (>51); POTASSIUM SERUM 4.0 MMOL/L (3.5-5.1); SALICYLATE LEVEL < 3.0 MG/DL (<30); SODIUM LEVEL 141 MMOL/L (136-145)
[2025-07-01 17:02] LABS: ETHYL ALCOHOL (ETHANOL) < 0.003 % (0.000-0.010)
[2025-07-01 18:00] VITALS: TEMP 96.9; O2SAT 98
[2025-07-01 18:10] VITALS: BP 166/86
== END 2025-07-01 18:32 | disposition home or self-care (01) ==
LOC: M ED 15:15 → EDBD 15:15 → M ED 18:32
DX: F32.A Depression, unspecified (principal); S93.502A Unspecified sprain of left great toe, initial encounter; Y92.9 Unspecified place or not applicable; Y93.9 Activity, unspecified; Y99.9 Unspecified external cause status; K21.9 Gastro-esophageal reflux disease without esophagitis; Z88.0 Allergy status to penicillin; Z91.018 Allergy to other foods; Z79.899 Other long term (current) drug therapy; Z79.810 Long term (current) use of selective estrogen receptor modulators (SERMs)

== ENCOUNTER → 2025-08-06 | Outpatient (CLI) | payer MEDICARE, MEDICAID ==
[~2025-08-06] MED LIST changes: +ZOLP10TA11 PO; -ZOLP10TA2 PO
== END ==
LOC: M RAD 15:58
PROVIDERS: ATTEND Nurse Practitioner Family
DX: M25.522 Pain in left elbow (principal)